=== PATIENT | female | born 1970 | race Hispanic/Latino ===

== ENCOUNTER 2016-11-23 08:36 | Emergency (ER) | payer OTHER ==
[2016-11-23 08:36] VITALS: BMI 30.7
[2016-11-23 09:19] VITALS: RESP 18; O2SAT 100
[2016-11-23] MEDS ORDERED: Sodium Chloride 0.9% 1,000 ML IV STA ×2 (09:38→13:21)
--- NOTE | 2016-11-23 09:39 | ED PDOC ---
Arrival/HPI - General Chief Complaint: Lower Extremity Problem/Injury Time Seen by Provider: 11/23/16 09:19 Historian: Patient - History of Present Illness Narrative History of Present Illness (Text): 11/23/16 10:06 46-year-old female with type 1 diabetes presents today with bilateral lower leg aching pain right greater than left. Patient complaining of burning sensation in the both legs. Patient also complaining of severe right knee pain. Patient denies numbness or weakness in the extremities. Patient also complaining of nausea. Patient states she is on an insulin pump 3 weeks ago. pt states she shut the pump off this morning since her sugar was good. She denies abdominal pain. No chest pain or shortness of breath. Denies fevers or chills. No urinary symptoms. Patient states she is just feeling achy all over. pt states she has been having right knee pain x 1 week. was seen by pmd and given meds without improvement. Past Medical History - Provider Review Nursing Documentation Reviewed: Yes - Travel History Have you recently traveled outside [place] w/in the past 3 mons?: No - Infectious Disease Hx of Infectious Diseases: None - Tetanus Immunization Tetanus Immunization: Unknown, >10 years Ago - Cardiac Hx Cardiac Disorders: Yes Hx Hypertension: Yes - Pulmonary Hx Respiratory Disorders: No - Neurological Hx Neurological Disorder: No - HEENT Hx HEENT Disorder: No - Renal Hx Renal Disorder: No - Endocrine/Metabolic Hx Endocrine Disorders: Yes Hx Diabetes Mellitus Type 1: Yes (dx 2000) - Hematological/Oncological Hx Blood Disorders: No - Integumentary Hx Dermatological Disorder: No - Musculoskeletal/Rheumatological Hx Musculoskeletal Disorders: Yes Hx Arthritis: Yes (right knee lower back) Hx Falls: No - Gastrointestinal Hx Gastrointestinal Disorders: No - Genitourinary/Gynecological Hx Genitourinary Disorders: No - Psychiatric Hx Psychophysiologic Disorder: Yes Hx Depression: Yes Hx Substance Use: No - Past Surgical History Past Surgical History: No Previous - Surgical History Hx Tubal Ligation: Yes - Anesthesia Hx Anesthesia: Yes Hx Anesthesia Reactions: Yes (Vomiting) Hx Malignant Hyperthermia: No - Suicidal Assessment Feels Threatened In Home Enviroment: No Family/Social History - Physician Review Nursing Documentation Reviewed: Yes Family/Social History: Unknown Family HX Smoking Status: Light Smoker < 10 Cigarettes Daily Hx Alcohol Use: Yes Hx Substance Use: No Hx Substance Use Treatment: No Allergies/Home Meds Allergies/Adverse Reactions: Allergies No Known Allergies Allergy (Verified 11/23/16 09:19) Home Medications: Home Meds Medication Instructions Recorded Confirmed Insulin Aspart, Recombinant 0 unit SC TID 10/30/14 08/08/16 [Novolog] Insulin Glargine, Recombina 15 unit SC ACB 08/08/16 08/08/16 [Lantus] Review of Systems - Review of Systems Constitutional: absent: Fatigue, Fevers Respiratory: absent: SOB, Cough Cardiovascular: absent: Chest Pain, Palpitations Gastrointestinal: Nausea. absent: Abdominal Pain, Constipation, Diarrhea, Vomiting Genitourinary Female: absent: Dysuria, Frequency, Hematuria Musculoskeletal: Arthralgias. absent: Back Pain, Neck Pain Skin: absent: Rash, Pruritis Neurological: absent: Headache, Dizziness Psychiatric: absent: Anxiety, Depression Physical Exam Vital Signs Reviewed: Yes Vital Signs Temp Pulse Resp BP Pulse Ox 11/23/16 13:02 89 18 121/63 100 11/23/16 11:19 97 H 18 123/65 100 11/23/16 10:50 98.0 F 104 H 18 125/62 100 11/23/16 09:17 98.4 F 90 18 141/68 100 Temperature: Afebrile Blood Pressure: Normal Pulse: Regular Respiratory Rate: Normal Appearance: Positive for: Well-Appearing, Non-Toxic, Comfortable Pain Distress: None Mental Status: Positive for: Alert and Oriented X 3 Finger Stick Blood Glucose: 273 - Systems Exam Head: Present: Atraumatic Mouth: Present: Moist Mucous Membranes Respiratory/Chest: Present: Clear to Auscultation Cardiovascular: Present: Regular Rate and Rhythm Abdomen: Present: Normal Bowel Sounds. No: Tenderness, Distention, Peritoneal Signs, Rebound, Guarding Back: Present: Normal Inspection. No: CVA Tenderness, Midline Tenderness Lower Extremity: Present: Normal Inspection, NORMAL PULSES, Normal ROM, Tenderness (Right leg; + ttp over the anterior aspect of the right knee; sensation and distal pulses intact; cap refill <2. full rom of knee with pain. no hip tenderness. ), Neurovascularly Intact, Capillary Refill < 2 s. No: CALF TENDERNESS, Swelling, Erythema, Deformity, Temperature Abnormalties Neurological: Present: GCS=15, Speech Normal Skin: Present: Warm, Dry, Normal Color. No: Rashes Psychiatric: Present: Alert, Oriented x 3 Medical Decision Making ED Course and Treatment: 11/23/16 10:09 46-year-old female with bilateral leg pain and nausea. Finger stick 273 CBC wnl CMP glucose 334 Amylase wnl Lipase wnl Venous duplex of the bilateral lower extremities: no dvt X-ray of the right knee; no fracture Toradol given for pain Zofran given for nausea tramadol added for right leg/knee pain. pt with glucose of 334; pt turned her insulin pump back on and gave herself 2 units of insulin via pump finger stick ; 321; pt then gave herself and additional unit of insulin. 2nd liter of fluid added. pt hungry; given half turkey sandwich and crackers pt feeling better 11/23/16 13:11 discussed all results with patient in depth; knee immobilizer and crutches given for ambulation; will d/c home to f/u with pmd and orthopedist. advised return if symptoms worsen ,persist or if new symptoms develop. impression; leg pain, knee pain, hyperglycemia motrin every 6 hours as needed for pain tramadol every 6 hours as needed for moderate to severe pain; may cause drowsiness follow up with the primary care physician within the next 2 days increase fluids follow up with the orthopedist within the next 2 days. return immediately if symptoms worsen, persist or if new symptoms develop. - Lab Interpretations Lab Results: 11/23/16 09:50 11/23/16 09:50 Lab Results 11/23/16 10:20: Urine Color Yellow, Urine Appearance Clear, Urine pH 6.0, Ur Specific [place] 1.010, Urine Protein Negative, Urine Glucose (UA) >=1000, Urine Ketones 15 H, Urine Blood Negative, Urine Nitrate Negative, Urine Bilirubin Negative, Urine Urobilinogen 0.2, Ur Leukocyte Esterase Negative 11/23/16 09:50: WBC 6.6, RBC 4.48, Hgb 12.6, Hct 37.4, MCV 83.5, MCH 28.1, MCHC 33.7, RDW 12.6, Plt Count 196, MPV 10.1, Gran % 74.0 H, Lymph % (Auto) 17.8 L, [place] % (Auto) 5.6, Eos % (Auto) 2.1, Baso % (Auto) 0.5, Gran # 4.91, Lymph # 1.2 , [place] # 0.4, Eos # 0.1, Baso # 0.03, Sodium 133, Potassium 4.3, Chloride 100, Carbon Dioxide 22, Anion Gap 15, BUN 7, Creatinine 0.5, Est GFR ( Amer) > 60, Est GFR (Non-Af Amer) > 60, Random Glucose 334 H* D, Calcium 9.0, Total Bilirubin 1.2, AST 18, ALT 30, Alkaline Phosphatase 67, Total Protein 6.8, Albumin 3.9, Globulin 2.9, Albumin/Globulin Ratio 1.3, Amylase 49, Lipase 33 - RAD Interpretation Radiology Orders: 11/23/16 09:38 DUPLEX LOWER EXTRM VEIN BILAT [US] Stat 11/23/16 10:05 KNEE W PATELLA RIGHT 3 VIEW [RAD] Stat - Medication Orders Current Medication Orders: Discontinued Medications Sodium Chloride (Sodium Chloride 0.9%) 1,000 mls @ 999 mls/hr IV .Q1H1M STA Stop: 11/23/16 10:38 Last Admin: 11/23/16 09:55 Dose: 999 MLS/HR eMAR Start Stop Document 11/23/16 09:55 SE (Rec: 11/23/16 09:55 [id number]) Intravenous Solution Start Date 11/23/16 Start Time 09:55 Sodium Chloride (Sodium Chloride 0.9%) 1,000 mls @ 999 mls/hr IV .Q1H1M STA Stop: 11/23/16 14:21 Last Admin: 11/23/16 13:28 Dose: 999 MLS/HR eMAR Start Stop Document 11/23/16 13:28 SE (Rec: 11/23/16 [facility]:[address] [id number] Intravenous Solution Start Date 11/23/16 Start Time 13:28 Ketorolac Tromethamine (Toradol) 30 mg IVP STAT STA Stop: 11/23/16 10:09 Last Admin: 11/23/16 10:56 Dose: 30 MG IVP Administration Document 11/23/16 10:56 SE (Rec: 11/23/16 10:56 SE [id number]) Charges for Administration # of IVP Administrations 1 Ondansetron HCl (Zofran Inj) 4 mg IVP STAT STA Stop: 11/23/16 09:40 Last Admin: 11/23/16 09:53 Dose: 4 MG IVP Administration Document 11/23/16 09:53 SE (Rec: 11/23/16 09:53 SE [id number]) Charges for Administration # of IVP Administrations 1 Tramadol HCl (Ultram) 50 mg PO STAT STA Stop: 11/23/16 12:27 Last Admin: 11/23/16 12:37 Dose: 50 MG Disposition/Present on Arrival - Present on Arrival Any Indicators Present on Arrival: Yes History of DVT/PE: No History of Uncontrolled Diabetes: Yes Urinary Catheter: No History of Decub. Ulcer: No History Surgical Site Infection Following: None - Disposition Have Diagnosis and Disposition been Completed?: Yes Diagnosis: Leg pain, Knee pain, Hyperglycemia Disposition: HOME/ ROUTINE Disposition Time: 14:32 Patient Plan: Discharge Patient Problems: Current Active Problems Problem Status Diagnosed Hyperglycemia Acute Knee pain Acute Leg pain Acute Condition: GOOD Discharge Instructions (ExitCare): Diabetic Hyperglycemia (ED), Arthralgia (ED) , Leg Pain (ED) Additional Instructions: Motrin every 6 hours as needed for pain tramadol every 6 hours as needed for moderate to severe pain; may cause drowsiness follow up with the primary care physician within the next 2 days increase fluids follow up with the orthopedist within the next 2 days. USE knee immobilizer and crutches return immediately if symptoms worsen, persist or if new symptoms develop. Prescriptions: Ibuprofen [Motrin] 600 mg PO Q6H PRN #20 tab PRN Reason: pain/fever reduction traMADol [Ultram] 50 mg PO Q6H PRN #15 tab PRN Reason: moderate to severe pain Referrals: Misha Rizvi JD, MD [Staff Provider] - Follow up with primary Joaquin Marie III, MD [Medical Doctor] - Follow up with primary Forms: WORK NOTE
[2016-11-23 09:59] LABS: ADD MANUAL DIFF? NO
[2016-11-23 10:02] LABS: BASO # 0.03 K/mm3 (0.0-2.0); BASO % 0.5 % (0.0-3.0); EOS # 0.1 (0.0-0.7); EOS % 2.1 % (1.5-5.0); GRAN # 4.91 (1.4-6.5); HEMATOCRIT 37.4 % (36.0-48.0); LYMPH # 1.2 (1.2-3.4); LYMPH % 17.8 % (22.0-35.0); MEAN CELL VOLUME 83.5 fL (80.0-105.0); MEAN CORPUSCULAR HEMOGLOBIN 28.1 pg (25.0-35.0); MEAN CORPUSCULAR HGB CONC 33.7 g/dl (31.0-37.0); MEAN PLATELET VOLUME 10.1 fl (7.0-11.0); MONO # 0.4 (0.1-0.6); MONO % 5.6 % (1.0-6.0); PLATELET COUNT 196 10^3/uL (120.0-450.0); RED CELL DISTRIBUTION WIDTH 12.6 % (11.5-14.5); WHITE BLOOD COUNT 6.6 10^3/ul (4.5-11.0)
[2016-11-23 10:12] LABS: ALB/GLOB RATIO 1.3 (1.1-1.8); ALKALINE PHOSPHATASE 67 U/L (38-133); ALT/SGPT 30 U/L (7-56); AMYLASE 49 U/L (35-125); AST/SGOT 18 U/L (15-39); BILIRUBIN,TOTAL 1.2 mg/dL (0.2-1.3); BLOOD UREA NITROGEN 7 mg/dL (7-21); CARBON DIOXIDE 22 mmol/L (21-33); CHLORIDE 100 mmol/L (98-107); GFR AFRICAN-AMERICAN > 60; LIPASE 33 U/L (23-300); POTASSIUM 4.3 mmol/L (3.6-5.0); SODIUM 133 mmol/L (132-148); TOTAL PROTEIN 6.8 g/dL (5.8-8.3)
[2016-11-23 10:23] LABS: GLUCOSE,RANDOM 334 mg/dL (70-110)
[2016-11-23 10:50] LABS: URINE BILIRUBIN NEGATIVE (NEGATIVE); URINE BLOOD NEGATIVE (NEGATIVE); URINE GLUCOSE (UA) >=1000 mg/dL (NEGATIVE); URINE KETONE 15 mg/dL (NEGATIVE); URINE LEUKOCYTE ESTERASE NEGATIVE Leu/uL (NEGATIVE); URINE PROTEIN NEGATIVE mg/dL (<30 mg/dL); URINE UROBILINOGEN 0.2 E.U./dL (<1 E.U./dL)
[2016-11-23 10:51] VITALS: TEMP 98
[2016-11-23 10:51] LABS: URINE APPEARANCE CLEAR (CLEAR); URINE COLOR YELLOW (YELLOW)
--- NOTE | 2016-11-23 10:57 | US ---
HISTORY: Leg pain and swelling. Evaluate for DVT PHYSICIAN(S): Rip Hinson MD. TECHNIQUE: Duplex sonography and color-flow Doppler with graded compression were used to evaluate the deep venous systems of both lower extremities. FINDINGS: The visualized deep venous systems of both lower extremities are sonographically normal and compressible. Normal wave forms and augmentation are seen. There is no sonographic evidence for deep venous thrombosis in the visualized segments of both lower extremities. IMPRESSION: No sonographic evidence for deep venous thrombosis in the visualized segments of both lower extremities.
--- NOTE | 2016-11-23 12:19 | RAD ---
PROCEDURE: Right Knee Radiographs. HISTORY: knee pain COMPARISON: None. FINDINGS: BONES: Normal. No fracture. JOINTS: Normal. No osteoarthritis. JOINT EFFUSION: None. OTHER FINDINGS: Patellar view is unremarkable IMPRESSION: Normal radiographs of the right knee.
[2016-11-23 13:03] VITALS: BP 121/63; PULSE 89
== END 2016-11-23 15:07 | disposition home or self-care (01) ==
LOC: ED 08:36
DX: M25.561 Pain in right knee (principal); M79.605 Pain in left leg; M79.604 Pain in right leg; E10.9 Type 1 diabetes mellitus without complications; Z79.4 Long term (current) use of insulin; I10 Essential (primary) hypertension
CPT/HCPCS: 29530; 73562; 80053; 81003; 82150; 83690; 85025; 93970; 96374; 96375; 99285; J1885; J2405; J7040

== ENCOUNTER 2017-02-15 17:10 | Emergency (ER) | payer OTHER ==
[2017-02-15 17:24] VITALS: BMI 29.0
[2017-02-15 17:29] VITALS: TEMP 98.3
[2017-02-15] MEDS ORDERED: Sodium Chloride 0.9% 1,000 ML IV STA (17:54)
--- NOTE | 2017-02-15 18:02 | ED PDOC ---
Arrival/HPI - General Chief Complaint: ENT Problem Time Seen by Provider: 02/15/17 17:43 Historian: Patient - History of Present Illness Narrative History of Present Illness (Text): 02/15/17 17:57 46-year-old female with a history of diabetes presents today with a one-week history of cough and nasal congestion and sore throat with a feeling of worsening weakness over the past few days. Patient states today at work she felt foggy and just not feeling right. Patient states her sugars have been running a little high lately. She denies chest pain or shortness of breath. Denies abdominal pain. She is complaining of dry cough and irritated throat. Also with nasal congestion. She is complaining of fullness in the face. Patient states she has been taking Augmentin for approximately one week without improvement in her symptoms. Time/Duration: Other (2 days) Symptom Onset: Gradual Quality: Other (no pain) Past Medical History - Provider Review Nursing Documentation Reviewed: Yes - Travel History Have you recently traveled outside [place] w/in the past 3 mons?: No - Infectious Disease Hx of Infectious Diseases: None - Tetanus Immunization Tetanus Immunization: Unknown, >10 years Ago - Cardiac Hx Cardiac Disorders: Yes Hx Hypertension: Yes - Pulmonary Hx Respiratory Disorders: No - Neurological Hx Neurological Disorder: No - HEENT Hx HEENT Disorder: No - Renal Hx Renal Disorder: No - Endocrine/Metabolic Hx Endocrine Disorders: Yes Hx Diabetes Mellitus Type 1: Yes (dx 2000) - Hematological/Oncological Hx Blood Disorders: No - Integumentary Hx Dermatological Disorder: No - Musculoskeletal/Rheumatological Hx Musculoskeletal Disorders: Yes Hx Arthritis: Yes (right knee lower back) Hx Falls: No - Gastrointestinal Hx Gastrointestinal Disorders: No - Genitourinary/Gynecological Hx Genitourinary Disorders: No - Psychiatric Hx Psychophysiologic Disorder: Yes Hx Depression: Yes Hx Substance Use: No - Past Surgical History Past Surgical History: No Previous - Surgical History Hx Tubal Ligation: Yes - Anesthesia Hx Anesthesia: Yes Hx Anesthesia Reactions: Yes (Vomiting) Hx Malignant Hyperthermia: No - Suicidal Assessment Feels Threatened In Home Enviroment: No Family/Social History - Physician Review Nursing Documentation Reviewed: Yes Family/Social History: Unknown Family HX Smoking Status: Current Some Days Smoker Hx Alcohol Use: Yes Frequency of alcohol use: Socially Hx Substance Use: No Hx Substance Use Treatment: No Allergies/Home Meds Allergies/Adverse Reactions: Allergies No Known Allergies Allergy (Verified 11/23/16 09:19) Home Medications: Home Meds Medication Instructions Recorded Confirmed Insulin Aspart, Recombinant 0 unit SC TID 10/30/14 02/15/17 [Novolog] Diclofenac Sodium [Voltaren] 1 tab PO BID PRN 02/15/17 02/15/17 Review of Systems - Review of Systems Constitutional: Fatigue. absent: Fevers ENT: Sore Throat, Sinus Congestion Respiratory: Cough Cardiovascular: absent: Chest Pain, Palpitations Gastrointestinal: absent: Abdominal Pain, Diarrhea, Nausea, Vomiting Musculoskeletal: absent: Arthralgias, Back Pain, Neck Pain Skin: absent: Rash, Pruritis Neurological: absent: Headache, Dizziness, Disequilibrium Psychiatric: absent: Anxiety, Depression, Suicidal Ideation Physical Exam Vital Signs Reviewed: Yes Vital Signs Temp Pulse Resp BP Pulse Ox 02/15/17 20:13 78 18 131/63 99 02/15/17 17:29 98.3 F 96 H 18 129/65 99 Temperature: Afebrile Blood Pressure: Normal Pulse: Regular Respiratory Rate: Normal Appearance: Positive for: Well-Appearing, Non-Toxic, Comfortable Pain Distress: None Mental Status: Positive for: Alert and Oriented X 3 Finger Stick Blood Glucose: 284 - Systems Exam Head: Present: Atraumatic Mouth: Present: Moist Mucous Membranes Neck: Present: Normal Range of Motion Respiratory/Chest: Present: Clear to Auscultation, Good Air Exchange. No: Respiratory Distress, Accessory Muscle Use, Wheezes, Retracting, Rhonchi, Tachypneic, Tender to Palpation Cardiovascular: Present: Regular Rate and Rhythm, Normal S1, S2. No: Murmurs Abdomen: No: Tenderness, Normal Bowel Sounds Back: Present: Normal Inspection Upper Extremity: Present: Normal ROM Neurological: Present: GCS=15, Speech Normal Skin: Present: Warm, Dry, Normal Color. No: Rashes Psychiatric: Present: Alert Medical Decision Making ED Course and Treatment: 02/15/17 18:05 46yr old female with hx of DM. presenting with weakness and cold symptoms on augmentin. pt refusing EKG. fingerstick; 284 cbc; wnl cmp; glucose; 241 trop; wnl cxr; wnl UA: trace ketones 1L NS iv bolus 02/15/17 20:37 pt feeling better; vitals stable. discussed all results with patient in depth; advised f/u with PMD within the next 2 days. will add rx for flonase and claritin. advised continue abx as prescribed and return if symptoms worsen, persist or if new symptoms develop. Patient verbalizes understanding of discharge instructions and need for immediate followup. all aspects of this case were discussed the attending of record. impression; cough, sore throat increase fluids motrin every 6 hours as needed for pain/fever reduction continue augmentin as prescribed by your primary care physician flonase; 2 sprays each nostril once daily claritin once daily. follow up with the ENT specialist follow up with the primary care physician within the next 2 days. return immediately if symptoms worsen,persist or if new symptoms develop. - Lab Interpretations Lab Results: 02/15/17 18:15 02/15/17 18:15 Lab Results 02/15/17 20:00: Urine Color Yellow, Urine Appearance Clear, Urine pH 5.5, Ur Specific [place] >= 1.030, Urine Protein Negative, Urine Glucose (UA) >=1000, Urine Ketones 15 H, Urine Blood Negative, Urine Nitrate Negative, Urine Bilirubin Negative, Urine Urobilinogen 0.2, Ur Leukocyte Esterase Negative 02/15/17 18:15: WBC 7.7, RBC 4.75, Hgb 13.6, Hct 40.3, MCV 84.8, MCH 28.6, MCHC 33.7, RDW 12.6, Plt Count 256, MPV 9.9, Gran % 65.7, Lymph % (Auto) 25.0, [place] % (Auto) 5.7, Eos % (Auto) 3.1, Baso % (Auto) 0.5, Gran # 5.04, Lymph # 1.9, [place] # 0.4, Eos # 0.2, Baso # 0.04 02/15/17 18:15: Sodium 135, Potassium 4.0, Chloride 98, Carbon Dioxide 26, Anion Gap 15, BUN 17, Creatinine 0.6, Est GFR ( Amer) > 60, Est GFR (Non- Af Amer) > 60, Random Glucose 241 H, Calcium 9.4, Total Bilirubin 0.7, AST 21, ALT 26, Alkaline Phosphatase 82, Lactate Dehydrogenase 365, Total Creatine Kinase 86, Troponin I < 0.01, Total Protein 7.8, Albumin 4.7, Globulin 3.1, Albumin/Globulin Ratio 1.5 - RAD Interpretation Radiology Orders: 02/15/17 17:54 CHEST TWO VIEWS (PA/LAT) [RAD] Stat - Medication Orders Current Medication Orders: Discontinued Medications Sodium Chloride (Sodium Chloride 0.9%) 1,000 mls @ 999 mls/hr IV .Q1H1M STA Stop: 02/15/17 18:54 Last Admin: 02/15/17 17:15 Dose: 999 mls/hr Disposition/Present on Arrival - Present on Arrival Any Indicators Present on Arrival: Yes History of DVT/PE: No History of Uncontrolled Diabetes: Yes Urinary Catheter: No History of Decub. Ulcer: No History Surgical Site Infection Following: None - Disposition Have Diagnosis and Disposition been Completed?: Yes Diagnosis: Cough, Sore throat Disposition: HOME/ ROUTINE Disposition Time: 20:41 Patient Plan: Discharge Patient Problems: Current Active Problems Problem Status Onset Cough Acute Sore throat Acute Condition: GOOD Additional Instructions: increase fluids motrin every 6 hours as needed for pain/fever reduction continue augmentin as prescribed by your primary care physician flonase; 2 sprays each nostril once daily claritin once daily. follow up with the ENT specialist follow up with the primary care physician within the next 2 days. return immediately if symptoms worsen,persist or if new symptoms develop. Prescriptions: Fluticasone Nasal [Flonase] 2 spr NS DAILY #1 spr Loratadine [Claritin] 10 mg PO DAILY #30 tab Referrals: Misha Rizvi JD, MD [Primary Care Provider] - Follow up with primary Joaquin Nugent DO [Doctor Osteopathy] - Follow up with primary Forms: WORK NOTE
[2017-02-15 18:21] LABS: ADD MANUAL DIFF? NO
[2017-02-15 18:28] LABS: BASO # 0.04 K/mm3 (0.0-2.0); BASO % 0.5 % (0.0-3.0); EOS # 0.2 (0.0-0.7); EOS % 3.1 % (1.5-5.0); GRAN # 5.04 (1.4-6.5); GRAN % 65.7 % (50.0-68.0); HEMATOCRIT 40.3 % (36.0-48.0); LYMPH # 1.9 (1.2-3.4); MEAN CELL VOLUME 84.8 fL (80.0-105.0); MEAN CORPUSCULAR HEMOGLOBIN 28.6 pg (25.0-35.0); MEAN CORPUSCULAR HGB CONC 33.7 g/dl (31.0-37.0); MEAN PLATELET VOLUME 9.9 fl (7.0-11.0); MONO # 0.4 (0.1-0.6); MONO % 5.7 % (1.0-6.0); PLATELET COUNT 256 10^3/uL (120.0-450.0); RED CELL DISTRIBUTION WIDTH 12.6 % (11.5-14.5); WHITE BLOOD COUNT 7.7 10^3/ul (4.5-11.0)
[2017-02-15 18:37] LABS: ALB/GLOB RATIO 1.5 (1.1-1.8); ALKALINE PHOSPHATASE 82 U/L (38-133); ALT/SGPT 26 U/L (7-56); AST/SGOT 21 U/L (15-39); BILIRUBIN,TOTAL 0.7 mg/dL (0.2-1.3); BLOOD UREA NITROGEN 17 mg/dL (7-21); CALCIUM 9.4 mg/dL (8.4-10.5); CARBON DIOXIDE 26 mmol/L (21-33); CHLORIDE 98 mmol/L (98-107); GFR AFRICAN-AMERICAN > 60; GLUCOSE,RANDOM 241 mg/dL (70-110); SODIUM 135 mmol/L (132-148); TOTAL PROTEIN 7.8 g/dL (5.8-8.3)
[2017-02-15 18:50] LABS: TROPONIN I < 0.01 ng/mL
[2017-02-15 20:14] VITALS: PULSE 78
[2017-02-15 20:14] LABS: PH,URINE 5.5 (4.7-8.0); URINE BILIRUBIN NEGATIVE (NEGATIVE); URINE BLOOD NEGATIVE (NEGATIVE); URINE GLUCOSE (UA) >=1000 mg/dL (NEGATIVE); URINE KETONE 15 mg/dL (NEGATIVE); URINE LEUKOCYTE ESTERASE NEGATIVE Leu/uL (NEGATIVE); URINE PROTEIN NEGATIVE mg/dL (<30 mg/dL); URINE UROBILINOGEN 0.2 E.U./dL (<1 E.U./dL)
[2017-02-15 20:35] LABS: URINE APPEARANCE CLEAR (CLEAR); URINE COLOR YELLOW (YELLOW)
[2017-02-15 21:10] VITALS: BP 130/87; RESP 16; O2SAT 100
--- NOTE | 2017-02-16 10:04 | RAD ---
HISTORY: cough COMPARISON: 08/08/2016 TECHNIQUE: Chest PA and lateral FINDINGS: LUNGS: No active pulmonary disease. PLEURA: No significant pleural effusion identified. No pneumothorax apparent. CARDIOVASCULAR: Normal. OSSEOUS STRUCTURES: No significant abnormalities. VISUALIZED UPPER ABDOMEN: Normal. OTHER FINDINGS: None. IMPRESSION: No active disease.
== END 2017-02-15 21:07 | disposition home or self-care (01) ==
LOC: ED 17:10
DX: R05 Cough (principal); J02.9 Acute pharyngitis, unspecified
CPT/HCPCS: 71020; 80053; 81003; 82550; 83615; 84484; 85025; 99284; J7040

== ENCOUNTER 2017-04-08 19:49 | Observation (INO) | payer OTHER ==
[2017-04-08 19:49] VITALS: BMI 29.0
[2017-04-08] MEDS: Sodium Chloride 0.9% 1,000 ML IV SCH (20:37)
[2017-04-08 20:39] LABS: BASO # 0.04 K/mm3 (0.0-2.0); BASO % 0.9 % (0.0-3.0); EOS # 0.3 (0.0-0.7); EOS % 7.4 % (1.5-5.0); GRAN # 2.43 (1.4-6.5); GRAN % 54.3 % (50.0-68.0); HEMATOCRIT 36.2 % (36.0-48.0); LYMPH # 1.3 (1.2-3.4); LYMPH % 29.1 % (22.0-35.0); MEAN CELL VOLUME 84.2 fl (80.0-105.0); MEAN CORPUSCULAR HEMOGLOBIN 28.1 pg (25.0-35.0); MEAN CORPUSCULAR HGB CONC 33.4 g/dl (31.0-37.0); MEAN PLATELET VOLUME 9.8 fl (7.0-11.0); MONO # 0.4 (0.1-0.6); MONO % 8.3 % (1.0-6.0); RED CELL DISTRIBUTION WIDTH 12.4 % (11.5-14.5); WHITE BLOOD COUNT 4.5 10^3/ul (4.5-11.0)
[2017-04-08 20:50] LABS: ALB/GLOB RATIO 1.6 (1.1-1.8); ALKALINE PHOSPHATASE 116 U/L (38-133); ALT/SGPT 19 U/L (7-56); AST/SGOT 16 U/L (15-39); BILIRUBIN,TOTAL 0.4 mg/dL (0.2-1.3); BLOOD UREA NITROGEN 18 mg/dL (7-21); CALCIUM 8.6 mg/dL (8.4-10.5); CARBON DIOXIDE 15 mmol/L (21-33); CHLORIDE 104 mmol/L (98-107); GFR AFRICAN-AMERICAN > 60; POTASSIUM 4.2 mmol/L (3.6-5.0); SODIUM 137 mmol/L (132-148); TOTAL PROTEIN 5.7 g/dL (5.8-8.3)
[2017-04-08 20:54] LABS: GLUCOSE,RANDOM 547 mg/dL (70-110)
--- NOTE | 2017-04-08 21:06 | ED PDOC ---
Arrival/HPI - General Chief Complaint: High Blood Sugar Time Seen by Provider: 04/08/17 19:51 Historian: Patient - History of Present Illness Narrative History of Present Illness (Text): 04/08/17 20:20 Emma Morgan is a 47 year old female, whose past medical history includes diabetes, who presents to the Emergency department complaining of hyperglycemia. Patient states her insulin pump has been malfunctioning and symptoms feel similar to previous episodes of DKA. Patient denies any fever, chills, chest pain, shortness of breath, diarrhea, urinary symptoms, back pain, neck pain, headache, dizziness, or any other complaints. PMD: Dr. Rizvi Symptom Onset: Gradual Symptom Course: Unchanged Activities at Onset: Light Context: Home Past Medical History - Provider Review Nursing Documentation Reviewed: Yes - Infectious Disease Hx of Infectious Diseases: None - Tetanus Immunization Tetanus Immunization: Unknown, >10 years Ago - Reproductive Menopause: No - Cardiac Hx Cardiac Disorders: Yes Hx Hypertension: Yes - Pulmonary Hx Respiratory Disorders: No - Neurological Hx Neurological Disorder: No - HEENT Hx HEENT Disorder: No - Renal Hx Renal Disorder: No - Endocrine/Metabolic Hx Endocrine Disorders: Yes Hx Diabetes Mellitus Type 1: Yes (dx 2000) - Hematological/Oncological Hx Blood Disorders: No - Integumentary Hx Dermatological Disorder: No - Musculoskeletal/Rheumatological Hx Musculoskeletal Disorders: Yes Hx Arthritis: Yes (right knee lower back) Hx Falls: No - Gastrointestinal Hx Gastrointestinal Disorders: No - Genitourinary/Gynecological Hx Genitourinary Disorders: No - Psychiatric Hx Psychophysiologic Disorder: Yes Hx Depression: Yes Hx Substance Use: No - Past Surgical History Past Surgical History: No Previous - Surgical History Hx Tubal Ligation: Yes - Anesthesia Hx Anesthesia: Yes Hx Anesthesia Reactions: Yes (Vomiting) Hx Malignant Hyperthermia: No - Suicidal Assessment Feels Threatened In Home Enviroment: No Family/Social History - Physician Review Nursing Documentation Reviewed: Yes Family/Social History: Unknown Family HX Smoking Status: Light Smoker < 10 Cigarettes Daily Hx Alcohol Use: Yes Frequency of alcohol use: Socially Hx Substance Use: No Hx Substance Use Treatment: No Allergies/Home Meds Allergies/Adverse Reactions: Allergies No Known Allergies Allergy (Verified 11/23/16 09:19) Home Medications: Home Meds Medication Instructions Recorded Confirmed Insulin Aspart, Recombinant 1 unit SC Q1H 10/30/14 04/08/17 [Novolog] Lisinopril [Zestril] 10 mg PO DAILY 04/08/17 04/08/17 Review of Systems - Physician Review All systems were reviewed & negative as marked: Yes - Review of Systems Constitutional: Normal. absent: Fevers Eyes: Normal ENT: Normal Respiratory: Normal. absent: SOB, Cough Cardiovascular: Normal. absent: Chest Pain Gastrointestinal: absent: Abdominal Pain, Diarrhea Genitourinary Female: Normal Musculoskeletal: Normal Skin: Normal. absent: Rash Neurological: Normal. absent: Headache, Dizziness Endocrine: Other (+hypergylcemia, +insulin pump malfunction) Hemo/Lymphatic: Normal Psychiatric: Normal Physical Exam Vital Signs Reviewed: Yes Vital Signs Temp Pulse Resp BP Pulse Ox 04/09/17 00:08 89 18 129/71 99 04/08/17 20:06 99 F 105 H 18 129/60 99 Temperature: Afebrile Blood Pressure: Normal Pulse: Regular Respiratory Rate: Normal Appearance: Positive for: Well-Appearing, Non-Toxic, Comfortable Pain Distress: None Mental Status: Positive for: Alert and Oriented X 3 Finger Stick Blood Glucose: 443 - Systems Exam Head: Present: Atraumatic, Normocephalic Pupils: Present: PERRL Extroacular Muscles: Present: EOMI Conjunctiva: Present: Normal Mouth: Present: Moist Mucous Membranes Neck: Present: Normal Range of Motion Respiratory/Chest: Present: Clear to Auscultation, Good Air Exchange. No: Respiratory Distress, Accessory Muscle Use Cardiovascular: Present: Regular Rate and Rhythm, Normal S1, S2. No: Murmurs Abdomen: Present: Normal Bowel Sounds. No: Tenderness, Distention, Peritoneal Signs Back: Present: Normal Inspection Upper Extremity: Present: Normal Inspection. No: Cyanosis, Edema Lower Extremity: Present: Normal Inspection. No: Edema Neurological: Present: GCS=15, CN II-XII Intact, Speech Normal Skin: Present: Warm, Dry, Normal Color. No: Rashes Psychiatric: Present: Alert, Oriented x 3, Normal Insight, Normal Concentration Medical Decision Making ED Course and Treatment: 04/08/17 20:20 Impression: 47 year old female complaining of hyperglycemia. Plan: -- Labs -- UA -- Chest X-ray -- IV fluids -- Zofran -- Reassess and disposition Prior Visits: Notes and results from previous visits were reviewed. On 02/15/17, pt was seen in the Emergency department for cough, sore throat, and nasal congestion. Pt was d/c home. Progress Notes: 04/08/17 21:30 Reviewed radiology, Chest X-ray shows no acute processes. 04/08/17 21:[address] Murphy, order planner, who is aware and agrees with plan. president educational institution notified. 04/08/17 22:17 Reviewed EKG, NSR at [address] bpm[address] Non-specific ST/T wave changes. 04/09/17 23:[address] Murphy, pt can go to Telemetry observation for hyperglycemia. On re-evaluation, pt is no acute distress. Discussed results and hospital observation plan with pt, who is aware and verbalizes understanding. - Lab Interpretations Lab Results: 04/08/17 20:25 04/09/17 00:07 Lab Results 04/09/17 00:07: Sodium 139, Potassium 3.7, Chloride 108 H, Carbon Dioxide 20 L, Anion Gap 15, BUN 15, Creatinine 0.5, Est GFR ( Amer) > 60, Est GFR (Non- Af Amer) > 60, Random Glucose 147 H, Calcium 8.2 L, Total Bilirubin 0.3, AST 16 , ALT 27, Alkaline Phosphatase 89, Total Protein 5.9, Albumin 3.4, Globulin 2.5 , Albumin/Globulin Ratio 1.4 04/08/17 22:47: Urine Color Yellow, Urine Appearance Clear, Urine pH 6.0, Ur Specific [place] 1.015, Urine Protein Negative, Urine Glucose (UA) >=1000, Urine Ketones >=80, Urine Blood Negative, Urine Nitrate Negative, Urine Bilirubin Negative, Urine Urobilinogen 0.2, Ur Leukocyte Esterase Negative 04/08/17 22:30: pCO2 31 L, pO2 91.0, HCO3 17.5 L, ABG pH 7.36, ABG Total CO2 18.5 L, ABG O2 Saturation 97.9, ABG O2 Content 15.5, ABG Base Excess -6.9 L, ABG Hemoglobin 11.4 L, ABG Carboxyhemoglobin 1.2, POC ABG HHb (Measured) 2.1, ABG Methemoglobin 0.7, ABG O2 Capacity 15.8 L, Hgb O2 Saturation 96.1, FiO2 21.0 04/08/17 20:25: Sodium 137, Potassium 4.2, Chloride 104, Carbon Dioxide 15 L, Anion Gap 22 H, BUN 18, Creatinine 0.7, Est GFR ( Amer) > 60, Est GFR ( Non-Af Amer) > 60, Random Glucose 547 H* D, Calcium 8.6, Total Bilirubin 0.4, AST 16, ALT 19, Alkaline Phosphatase 116, Total Protein 5.7 L, Albumin 3.5, Globulin 2.2, Albumin/Globulin Ratio 1.6 04/08/17 20:25: WBC 4.5 D, RBC 4.30, Hgb 12.1, Hct 36.2, MCV 84.2, MCH 28.1, MCHC 33.4, RDW 12.4, Plt Count 230, MPV 9.8, Gran % 54.3, Lymph % (Auto) 29.1, [place] % (Auto) 8.3 H, Eos % (Auto) 7.4 H, Baso % (Auto) 0.9, Gran # 2.43, Lymph # 1.3, [place] # 0.4, Eos # 0.3, Baso # 0.04 I have reviewed the lab results: Yes - RAD Interpretation Radiology Orders: 04/08/17 20:21 CHEST TWO VIEWS (PA/LAT) [RAD] Stat Peer Specialist: ED Physician - EKG Interpretation Interpreted by ED Physician: Yes Type: 12 lead EKG - Medication Orders Current Medication Orders: Acetaminophen (Tylenol 325mg Tab) 650 mg PO Q4H PRN PRN Reason: Pain, Mild (1-3) Last Admin: 04/09/17 14:50 Dose: 650 mg Re-Assess: [facility] Pain/Vitals Document 04/09/17 15:50 (Rec: 04/09/17 16:59 [id number]) Pain Reassessment Is This A Pain ReAssessment? Yes Sleep Is patient sleeping during reassessment? No Presence of Pain Presence of Pain No Ampicillin (Ampicillin) 500 mg PO TID MEENA PRN Reason: Protocol Last Admin: 04/09/17 18:53 Dose: 500 mg Sodium Chloride (Sodium Chloride 0.9%) 1,000 mls @ 125 mls/hr IV .Q8H [facility] Last Admin: 04/10/17 00:42 Dose: 125 mls/hr Insulin Detemir (Levemir) 30 unit SC [facility] Last Admin: 04/09/17 22:36 Dose: 30 unit Insulin Human Lispro (Humalog Low) 0 units SC [facility] PRN Reason: Protocol Last Admin: 04/09/17 22:36 Dose: Not Given Non-Admin Reason: Blood Sugar Parameter Insulin Human Lispro (Humalog) 12 units SC AC [facility] Last Admin: 04/09/17 16:41 Dose: 12 units Lisinopril (Zestril) 10 mg PO DAILY [facility] Last Admin: 04/09/17 10:02 Dose: 10 mg Metoclopramide HCl (Reglan) 5 mg PO 0600,1130,1630,2200 PRN PRN Reason: Nausea/Vomiting Last Admin: 04/09/17 10:03 Dose: 5 mg Discontinued Medications Sodium Chloride (Sodium Chloride 0.9%) 1,000 mls @ 80 mls/hr IV .[id number] [facility] Last Admin: 04/09/17 12:30 Dose: Insulin Human Regular 100 (units/ Sodium Chloride) 100 mls @ 6 mls/hr IV .[id number] PRN; Protocol; 6 UNITS/HR PRN Reason: TITRATE PER MD ORDER Last Admin: 04/09/17 00:14 Dose: 1.5 mls/hr Comments: Blood Sugar = 157. Insulin Human Regular (Humulin R Low) 0 units SC [facility] PRN Reason: Protocol Last Admin: 04/09/17 08:25 Dose: 5 units Insulin Human Regular (Humulin R High) 0 units SC [facility] PRN Reason: Protocol Last Admin: 04/09/17 11:54 Dose: 7 units Ondansetron HCl (Zofran Inj) 4 mg IVP STAT STA Stop: 04/08/17 20:23 Last Admin: 04/08/17 20:50 Dose: 4 mg Ondansetron HCl (Zofran Inj) 4 mg IVP ONCE ONE Stop: 04/09/17 08:17 Last Admin: 04/09/17 08:29 Dose: 4 mg - Scribe Statement The provider has reviewed the documentation as recorded by the Dinahibcarri Llanos All medical record entries made by the Dinahibcarri were at my direction and personally dictated by me. I have reviewed the chart and agree that the record accurately reflects my personal performance of the history, physical exam, medical decision making, and the department course for this patient. I have also personally directed, reviewed, and agree with the discharge instructions and disposition. Disposition/Present on Arrival - Present on Arrival Any Indicators Present on Arrival: No History of DVT/PE: No History of Uncontrolled Diabetes: Yes Urinary Catheter: No History of Decub. Ulcer: No History Surgical Site Infection Following: None - Disposition Have Diagnosis and Disposition been Completed?: Yes Diagnosis: Diabetic ketoacidosis associated with type 1 diabetes mellitus, Hyperglycemia Disposition: HOSPITALIZED Disposition Time: 23:00 Patient Problems: Current Active Problems Problem Status Onset Diabetic ketoacidosis associated with type 1 diabetes mellitus Acute Hypertension Acute Condition: FAIR
[2017-04-08] MEDS: Insulin Regular 100 UNITS in Sodium Chloride 0.9% 99 ML IV PRN (21:55)
[2017-04-08 22:46] LABS: ARTERIAL BLOOD GAS HCO3 17.5 mmol/L (21-28); ARTERIAL BLOOD GAS O2 CAPACITY 15.8 mL/dl (16-24); ARTERIAL BLOOD GAS O2 CONTENT 15.5 ML/dl (15-23); ARTERIAL BLOOD GAS PH 7.36 (7.35-7.45); ARTERIAL BLOOD HGB O2 SAT 96.1 % (95.0-98.0); CARBOXYHEMOGLOBIN 1.2 % (0.5-1.5); HHB 2.1 % (0-5); METHEMOGLOBIN 0.7 % (0.0-3.0)
[2017-04-08 22:51] LABS: URINE BILIRUBIN NEGATIVE (NEGATIVE); URINE BLOOD NEGATIVE (NEGATIVE); URINE GLUCOSE (UA) >=1000 mg/dL (NEGATIVE); URINE KETONE >=80 mg/dL (NEGATIVE); URINE LEUKOCYTE ESTERASE NEGATIVE Leu/uL (NEGATIVE); URINE PROTEIN NEGATIVE mg/dL (<30 mg/dL); URINE UROBILINOGEN 0.2 E.U./dL (<1 E.U./dL)
[2017-04-08 22:52] LABS: URINE APPEARANCE CLEAR (CLEAR); URINE COLOR YELLOW (YELLOW)
[2017-04-09] MEDS: Insulin Regular 100 UNITS in Sodium Chloride 0.9% 99 ML IV PRN (00:14)
[2017-04-09 00:38] LABS: ALB/GLOB RATIO 1.4 (1.1-1.8); ALKALINE PHOSPHATASE 89 U/L (38-133); ALT/SGPT 27 U/L (7-56); AST/SGOT 16 U/L (15-39); BILIRUBIN,TOTAL 0.3 mg/dL (0.2-1.3); BLOOD UREA NITROGEN 15 mg/dL (7-21); CALCIUM 8.2 mg/dL (8.4-10.5); CARBON DIOXIDE 20 mmol/L (21-33); GFR AFRICAN-AMERICAN > 60; GLUCOSE,RANDOM 147 mg/dL (70-110); POTASSIUM 3.7 mmol/L (3.6-5.0); SODIUM 139 mmol/L (132-148); TOTAL PROTEIN 5.9 g/dL (5.8-8.3)
[2017-04-09 00:47] LABS: CHLORIDE 108 mmol/L (98-107)
[2017-04-09] MEDS ORDERED: Insulin Reg-LOW-Coverage SC SCH (07:30)
[2017-04-09] MEDS: Sodium Chloride 0.9% 1,000 ML IV SCH ×3 (09:43→16:58)
--- NOTE | 2017-04-09 09:52 | CP.PCM.HP ---
History of Present Illness - History of Present Illness History of Present Illness: 47 yo female history of Type I DM presents to ED with fatigue, n/v for 1 - 2 days, recent dental abscess on oral amox, pt reports insulin pump also malfunctioning past 1 - 2 days. Started on isulin drip in ED, IV fliuids Present on Admission - Present on Admission Any Indicators Present on Admission: No Review of Systems - Gastrointestinal Gastrointestinal: Nausea, Vomiting - Genitourinary Genitourinary: Urinary Frequency - Endocrine Endocrine: Polydipsia Past Patient History - Infectious Disease Hx of Infectious Diseases: None - Tetanus Immunizations Tetanus Immunization: Unknown, >10 years Ago - Past Social History Smoking Status: Light Smoker < 10 Cigarettes Daily - CARDIAC Hx Cardiac Disorders: Yes Hx Hypertension: Yes - PULMONARY Hx Respiratory Disorders: No - NEUROLOGICAL Hx Neurological Disorder: No - HEENT Hx HEENT Problems: No - RENAL Hx Chronic Kidney Disease: No - ENDOCRINE/METABOLIC Hx Endocrine Disorders: Yes Hx Diabetes Mellitus Type 1: Yes (dx 1999) - HEMATOLOGICAL/ONCOLOGICAL Hx Blood Disorders: No - INTEGUMENTARY Hx Dermatological Problems: No - MUSCULOSKELETAL/RHEUMATOLOGICAL Hx Musculoskeletal Disorders: Yes Hx Arthritis: Yes (right knee lower back) Hx Falls: No - GASTROINTESTINAL Hx Gastrointestinal Disorders: No - GENITOURINARY/GYNECOLOGICAL Hx Genitourinary Disorders: No - PSYCHIATRIC Hx Psychophysiologic Disorder: Yes Hx Depression: Yes Hx Substance Use: No - SURGICAL HISTORY Hx Tubal Ligation: Yes - ANESTHESIA Hx Anesthesia: Yes Hx Anesthesia Reactions: Yes (Vomiting) Hx Malignant Hyperthermia: No Meds Allergies/Adverse Reactions: Allergies Allergy/AdvReac Type Severity Reaction Status Date / Time No Known Allergies Allergy Verified 11/23/16 09:19 Physical Exam - Constitutional Appears: No Acute Distress - Head Exam Head Exam: ATRAUMATIC, NORMOCEPHALIC - Eye Exam Eye Exam: EOMI, PERRL - ENT Exam ENT Exam: Normal Exam - Neck Exam Neck exam: Positive for: Normal Inspection - Respiratory Exam Respiratory Exam: Clear to Auscultation Bilateral, NORMAL BREATHING PATTERN - Cardiovascular Exam Cardiovascular Exam: REGULAR RHYTHM - GI/Abdominal Exam GI & Abdominal Exam: Normal Bowel Sounds, Soft - Extremities Exam Extremities exam: Positive for: normal inspection - Neurological Exam Neurological exam: Alert - Skin Skin Exam: Dry, Warm Results - Vital Signs Recent Vital Signs: Last Vital Signs Temp 99 F 04/09/17 06:00 Pulse 62 04/09/17 06:00 Resp 20 04/09/17 06:00 BP 120/65 04/09/17 06:00 Pulse Ox 97 04/09/17 06:00 - Labs Result Diagrams: 04/08/17 20:25 04/09/17 00:07 Labs: Laboratory Results - last 24 hr 04/09/17 04/09/17 02:33 08:12 POC Glucose (mg/dL) 124 H 440 H* Assessment & Plan (1) Diabetic ketoacidosis associated with type 1 diabetes mellitus Status: Acute (2) Hypertension Status: Acute - Assessment and Plan (Free Text) Plan: High-dose reg insukin coverage, IV fluids, endocrine consult , Cam
--- NOTE | 2017-04-09 10:36 | RAD ---
HISTORY: r/o infiltrate COMPARISON: 02/15/2017 TECHNIQUE: Chest PA and lateral FINDINGS: LUNGS: No active pulmonary disease. PLEURA: No significant pleural effusion identified. No pneumothorax apparent. CARDIOVASCULAR: Normal. OSSEOUS STRUCTURES: No significant abnormalities. VISUALIZED UPPER ABDOMEN: Normal. OTHER FINDINGS: None. IMPRESSION: No active disease.
--- NOTE | 2017-04-09 10:55 | CARD ---
APPROVED REPORT EKG Measurement Heart [id number] MA [id number] [id number] <Conclusion> Normal sinus rhythm Possible Left atrial enlargement Abnormal ECG
--- NOTE | 2017-04-09 11:16 | CP.PCM.PN ---
Subjective - Date & Time of Evaluation Date of Evaluation: 04/09/17 Time of Evaluation: 09:25 - Subjective Subjective: Pt was admitted earlier today for Hyperglycemia. Patient had c/o nausea earlier,was given 4 mg of Zofran iv at 8:17 AM,no seen for follow up. She states she feels better now,however her accucheck is reported to be 440. She was on Insulin drip at 6 units per hr while in the ER,it was stopped at 12: 14 AM after her accucheck was noted to be 157. At 8:30 AM she was given 5 units Humalog sc. She is also on iv fluids(NS) at 80 ccs an hr. VS: stable PMH:DM Type1 Objective - Vital Signs/Intake and Output Vital Signs (last 24 hours): Temp Pulse Resp BP Pulse Ox 99 F 62 20 120/65 97 04/09/17 06:00 04/09/17 06:00 04/09/17 06:00 04/09/17 06:00 04/09/17 06:00 Intake and Output: 04/09/17 04/09/17 06:59 18:59 Intake Total 640 Output Total 1 Balance 639 - Medications Medications: Current Medications Acetaminophen (Tylenol 325mg Tab) 650 mg PO Q4H PRN PRN Reason: Pain, Mild (1-3) Last Admin: 04/09/17 07:01 Dose: 650 mg Sodium Chloride (Sodium Chloride 0.9%) 1,000 mls @ 80 mls/hr IV .[id number] [facility] Last Admin: 04/08/17 20:37 Dose: 80 mls/hr Insulin Human Regular (Humulin R Low) 0 units SC [facility] PRN Reason: Protocol Last Admin: 04/09/17 08:25 Dose: 5 units - Constitutional Appears: No Acute Distress - Head Exam Head Exam: ATRAUMATIC, NORMAL INSPECTION, NORMOCEPHALIC - Eye Exam Eye Exam: Normal appearance, PERRL - ENT Exam ENT Exam: Mucous Membranes Moist - Neck Exam Neck Exam: Normal Inspection - Respiratory Exam Respiratory Exam: Clear to Ausculation Bilateral - Cardiovascular Exam Cardiovascular Exam: REGULAR RHYTHM - GI/Abdominal Exam GI & Abdominal Exam: Soft, Normal Bowel Sounds. absent: Tenderness - Extremities Exam Extremities Exam: Normal Inspection. absent: Calf Tenderness, Pedal Edema - Neurological Exam Neurological Exam: Alert, Awake, Oriented x3 - Psychiatric Exam Psychiatric exam: Normal Affect - Skin Skin Exam: Dry, Normal Color, Warm Assessment and Plan - Assessment and Plan (Free Text) Assessment: Nausea Hyperglycemia DM type 1,uncontrolled Plan: Dr Rizvi came in to see pt,orders for increased iv fluids and high dose insulin coverage ordered by him.
[2017-04-09] MEDS ORDERED: Insulin Reg-HIGH-Coverage SC SCH (11:30)
[2017-04-09] MEDS: Insulin Lispro (humaLOG) LOW Coverage SC SCH ×2 (16:31→22:36)
[2017-04-09] MEDS: Insulin Lispro 1 UNITS/0.01 ML SC SCH (16:41)
[2017-04-09] MEDS ORDERED: Insulin Detemir 100 units/ml Vial (Levemir) SC SCH (22:00)
[2017-04-10] MEDS: Sodium Chloride 0.9% 1,000 ML IV SCH ×2 (00:42→09:00)
[2017-04-10 00:50] VITALS: RESP 18
--- NOTE | 2017-04-10 04:13 | CON ---
ENDOCRINOLOGY CONSULT LOCATION: Room 266. HISTORY OF PRESENT ILLNESS: This is a 47-year-old female with recent hyperglycemic accelerations with an apparent malfunction of her insulin pump and has now been admitted for further diabetic management because of supervening diabetic ketoacidosis and dehydration. PAST MEDICAL HISTORY: As mentioned above, history of type 1 insulin-dependent diabetes diagnosed in 1999 and since then has been using an insulin pump over the last few years till the present time. History of hypertension and dyslipidemia. FAMILY HISTORY: Positive for diabetes and hypertension. SOCIAL HISTORY: Admits to smoking half a pack a day for some years now. No other known substance use. She has a very supportive family otherwise. REVIEW OF SYSTEMS: As mentioned above. Admits to generalized body weakness with episodic bouts of dizziness and lightheadedness, worse in the last few days prior to admission. Also, admits to easy fatigability and tiredness with suboptimal energy level. No chest pains, palpitations or PND. Her oral intake has been variable with nausea, dyspepsia and supervening vomiting episodes as noted. Also, admits to marked polyuria, nocturia and polydipsia over the last 2 to 3 days prior to admission. PHYSICAL EXAMINATION: GENERAL: Average built female in no apparent distress. VITAL SIGNS: Blood pressure of 140/80, pulse of 70 beats per minute and regular, temperature 98, respirations 20, height is 5 feet 6 inches and weight is 181 pounds. HEENT: Head is normocephalic. Eyes are anicteric with pink conjunctivae. Funduscopy not possible at this time. Ears, nose, and throat are otherwise normal. NECK: Supple. Thyroid gland is normal sized. No carotid bruits or any cervical adenopathy. CARDIOPULMONARY: Adynamic precordium. S1 and S2 is rapid and regular. LUNGS: Clear to auscultation. ABDOMEN: Flat and soft with active bowel sounds. EXTREMITIES: No peripheral pedal edema. Pulses are +2 bilaterally. LABORATORY DATA: Initial chemistry showed a BUN of 18, sodium 137, potassium 4.2, chloride 104, CO2 of 15, anion gap of 22, glucose was 547 and creatinine 0.7. The subsequent glucose levels have ranged from 297 to 344 and 440 mg/dL. ASSESSMENT: This is a 47-year-old female with uncontrolled and decompensated type 1 insulin-dependent diabetes, presenting here with an apparent malfunction of the insulin pump and supervening marked hyperglycemic accelerations with diabetic ketoacidosis and dehydration as noted. PLAN: Plan of management as discussed with the patient and staff. We will start her right away on a more physiologic basal and bolus insulin dose combination with Levemir to be given at 30 units subQ at bedtime daily to start tonight. We will also add Humalog given as 12 units subQ t.i.d. before meals to start at dinner time today as ordered. We will modify the coverage scale using Humalog at a low dose correction scale to tamica hypoglycemia and detailed orders have been given. We will continue the vigorous IV hydration with normal saline as ordered. We will also obtain serum chemistries and supplement accordingly as needed. We will reinforce diabetic education and dietary instructions at the time of this admission. We will also ask the patient to call her pump specialist regarding the current malfunction of her pump and possibly to replace the pump as indicated. We will obtain a hemoglobin A1c to confirm her prior glycemic control and baseline thyroid function studies and a lipid panel have been ordered. We will follow. Shannan Gipson MD
[2017-04-10 07:08] VITALS: O2SAT 97
[2017-04-10 07:54] LABS: ALB/GLOB RATIO 1.3 (1.1-1.8); ALKALINE PHOSPHATASE 57 U/L (38-133); ALT/SGPT 23 U/L (7-56); AST/SGOT 17 U/L (15-39); BILIRUBIN,TOTAL 0.4 mg/dL (0.2-1.3); BLOOD UREA NITROGEN 7 mg/dL (7-21); CALCIUM 8.1 mg/dL (8.4-10.5); CARBON DIOXIDE 23 mmol/L (21-33); CHLORIDE 108 mmol/L (98-107); CHOLESTEROL 130 mg/dL (130-200); GFR AFRICAN-AMERICAN > 60; GLUCOSE,RANDOM 88 mg/dL (70-110); POTASSIUM 3.7 mmol/L (3.6-5.0); SODIUM 139 mmol/L (132-148); TOTAL PROTEIN 5.4 g/dL (5.8-8.3)
[2017-04-10] MEDS: Insulin Lispro (humaLOG) LOW Coverage SC SCH ×2 (08:48→12:14)
[2017-04-10] MEDS: Insulin Lispro 1 UNITS/0.01 ML SC SCH ×2 (09:00→14:15)
--- NOTE | 2017-04-10 09:25 | CP.PCM.DIS ---
Provider - Provider Date of Admission: 04/09/17 01:01 Attending physician: Misha Rizvi JD, MD Primary care physician: Misha Rizvi JD, MD Time Spent in preparation of Discharge (in minutes): 30 Diagnosis - Discharge Diagnosis (1) Diabetic ketoacidosis associated with type 1 diabetes mellitus Status: Acute (2) Hypertension Status: Acute Hospital Course - Lab Results Lab Results: Most Recent Lab Values WBC 4.5 10^3/ul (4.5-11.0) D 04/08/17 20:25 RBC 4.30 10^6/uL (3.5-6.1) 04/08/17 20:25 Hgb 12.1 g/dL (12.0-16.0) 04/08/17 20:25 Hct 36.2 % (36.0-48.0) 04/08/17 20:25 MCV 84.2 fl (80.0-105.0) 04/08/17 20:25 MCH 28.1 pg (25.0-35.0) 04/08/17 20:25 MCHC 33.4 g/dl (31.0-37.0) 04/08/17 20:25 RDW 12.4 % (11.5-14.5) 04/08/17 20:25 Plt Count 230 10^3/uL (120.0-450.0) 04/08/17 20:25 MPV 9.8 fl (7.0-11.0) 04/08/17 20:25 Gran % 54.3 % (50.0-68.0) 04/08/17 20:25 Lymph % (Auto) 29.1 % (22.0-35.0) 04/08/17 20:25 [place] % (Auto) 8.3 % (1.0-6.0) H 04/08/17 20:25 Eos % (Auto) 7.4 % (1.5-5.0) H 04/08/17 20:25 Baso % (Auto) 0.9 % (0.0-3.0) 04/08/17 20:25 Gran # 2.43 (1.4-6.5) 04/08/17 20:25 Lymph # 1.3 (1.2-3.4) 04/08/17 20:25 [place] # 0.4 (0.1-0.6) 04/08/17 20:25 Eos # 0.3 (0.0-0.7) 04/08/17 20:25 Baso # 0.04 K/mm3 (0.0-2.0) 04/08/17 20:25 pCO2 31 mm/Hg (35-45) L 04/08/17 22:30 pO2 91.0 mm/Hg (80-100) 04/08/17 22:30 HCO3 17.5 mmol/L (21-28) L 04/08/17 22:30 ABG pH 7.36 (7.35-7.45) 04/08/17 22:30 ABG Total CO2 18.5 mmol.L (22-28) L 04/08/17 22:30 ABG O2 Saturation 97.9 % (95-98) 04/08/17 22:30 ABG O2 Content 15.5 ML/dl (15-23) 04/08/17 22:30 ABG Base Excess -6.9 mmol/L (-2.0-3.0) L 04/08/17 22:30 ABG Hemoglobin 11.4 g/dL (11.7-17.4) L 04/08/17 22:30 ABG Carboxyhemoglobin 1.2 % (0.5-1.5) 04/08/17 22:30 POC ABG HHb (Measured) 2.1 % (0-5) 04/08/17 22:30 ABG Methemoglobin 0.7 % (0.0-3.0) 04/08/17 22:30 ABG O2 Capacity 15.8 mL/dl (16-24) L 04/08/17 22:30 Hgb O2 Saturation 96.1 % (95.0-98.0) 04/08/17 22:30 FiO2 21.0 % 04/08/17 22:30 Sodium 139 mmol/L (132-148) 04/10/17 07:10 Potassium 3.7 mmol/L (3.6-5.0) 04/10/17 07:10 Chloride 108 mmol/L (98-107) H 04/10/17 07:10 Carbon Dioxide 23 mmol/L (21-33) 04/10/17 07:10 Anion Gap 12 (10-20) 04/10/17 07:10 BUN 7 mg/dL (7-21) 04/10/17 07:10 Creatinine 0.5 mg/dL (0.5-1.4) 04/10/17 07:10 Est GFR ( Amer) > 60 04/10/17 07:10 Est GFR (Non-Af Amer) > 60 04/10/17 07:10 POC Glucose (mg/dL) 205 mg/dL (65-110) H 04/10/17 08:45 Random Glucose 88 mg/dL (70-110) 04/10/17 07:10 Calcium 8.1 mg/dL (8.4-10.5) L 04/10/17 07:10 Total Bilirubin 0.4 mg/dL (0.2-1.3) 04/10/17 07:10 AST 17 U/L (15-39) 04/10/17 07:10 ALT 23 U/L (7-56) 04/10/17 07:10 Alkaline Phosphatase 57 U/L (38-133) 04/10/17 07:10 Total Protein 5.4 g/dL (5.8-8.3) L 04/10/17 07:10 Albumin 3.0 g/dL (3.0-4.8) 04/10/17 07:10 Globulin 2.3 gm/dL 04/10/17 07:10 Albumin/Globulin Ratio 1.3 (1.1-1.8) 04/10/17 07:10 Triglycerides 108 mg/dL (35-160) 04/10/17 07:10 Cholesterol 130 mg/dL (130-200) 04/10/17 07:10 LDL Cholesterol Direct 62 mg/dL (0-129) 04/10/17 07:10 HDL Cholesterol 52 mg/dL (29-60) 04/10/17 07:10 TSH 3rd Generation 2.33 mIU/mL (0.46-4.68) 04/10/17 07:10 Urine Color Yellow (YELLOW) 04/08/17 22:47 Urine Appearance Clear (CLEAR) 04/08/17 22:47 Urine pH 6.0 (4.7-8.0) 04/08/17 22:47 Ur Specific [place] 1.015 (1.005-1.035) 04/08/17 22:47 Urine Protein Negative mg/dL (<30 mg/dL) 04/08/17 22:47 Urine Glucose (UA) >=1000 mg/dL (NEGATIVE) 04/08/17 22:47 Urine Ketones >=80 mg/dL (NEGATIVE) 04/08/17 22:47 Urine Blood Negative (NEGATIVE) 04/08/17 22:47 Urine Nitrate Negative (NEGATIVE) 04/08/17 22:47 Urine Bilirubin Negative (NEGATIVE) 04/08/17 22:47 Urine Urobilinogen 0.2 E.U./dL (<1 E.U./dL) 04/08/17 22:47 Ur Leukocyte Esterase Negative Ernesto/uL (NEGATIVE) 04/08/17 22:47 Urine HCG, Qual Negative (NEGATIVE) 04/09/17 22:45 - Hospital Course Hospital Course: 47 yo female admtted thru ED on 04/08/17 with elevated glucose levels, fatigue, found to be in early DKA, started on IV fluid, insulin coverage, endocrinology consult Dr. Gipson. Pt had uneventful course, glucose levels now under control and pt stable for dc to home. She will resume her previous meds. Consistent carb diet, Activity ad latisha Discharge Exam - Head Exam Head Exam: ATRAUMATIC, NORMAL INSPECTION, NORMOCEPHALIC - Respiratory Exam Respiratory Exam: Clear to PA & Lateral, NORMAL BREATHING PATTERN - Cardiovascular Exam Cardiovascular Exam: REGULAR RHYTHM - GI/Abdominal Exam GI & Abdominal Exam: Normal Bowel Sounds, Soft - Back Exam Back exam: NORMAL INSPECTION - Neurological Exam Neurological exam: Alert, Oriented x3 - Skin Skin Exam: Dry, Warm Discharge Plan - Follow Up Plan Condition: FAIR Disposition: HOME/ ROUTINE Referrals: Misha Rizvi JD, MD [Primary Care Provider] -
[2017-04-10 11:27] VITALS: BP 126/72; PULSE 83
[2017-04-10 11:59] VITALS: TEMP 98.8
[2017-04-10] MEDS ORDERED: Insulin Lispro 1 UNITS/0.01 ML SC SCH (16:30)
[2017-04-10] MEDS ORDERED: Insulin Detemir 100 units/ml Vial (Levemir) SC SCH (22:00)
--- NOTE | 2017-04-10 22:28 | PN ---
ENDO FOLLOWUP NOTE DATE: 04/10/2017 SUBJECTIVE: This is a 47-year-old female with recent uncontrolled type 1 insulin-dependent diabetes, currently on a [employer] insulin pump, which apparently malfunctioned and developed supervening hyperglycemic acceleration and early diabetic ketoacidosis as noted thereof. Her glycemic levels are fluctuating, but much improved today with low normal glycemic levels overnight because of very nil and suboptimal oral intake as noted. Her glucose levels have ranged from 80 to 205 mg/dL today as noted. The claim service representative glucose was 58 mg/dL. Her hemoglobin A1c however is extremely elevated at 12.3% which is clearly indicative of suboptimal metabolic control of her diabetic condition even on the insulin pump as noted. Her latest chemistry showed a BUN of 7, sodium 139, potassium of 3.7, chloride 108, CO2 23, glucose 88 and creatinine 0.5. Her TSH is 2.33 as noted. So at this time, we will continue her low dose correctional scale using Humalog insulin as given. However, we will lower the Humalog down to 6 units subcutaneous t.i.d. before meals to start at dinner time today as ordered. We will also lower the Levemir to 20 units subcutaneous at bedtime daily to start tonight. We will titrate incremental as indicated to optimize metabolic control. She will follow with her medical doctor, Dr. Rizvi for outpatient metabolic and diabetic followup. We will actually inform today the [employer] pump company regarding a possible change in her insulin pump and/or insulin tubing supplies because of the supervening blockage of the connections as noted thereof. The patient has been advised to call her pump specialist in [place] regarding the aforementioned also at this time. We will obtain serial chem and supplement accordingly as needed. We will follow. Shannan Gipsno MD
== END 2017-04-10 14:27 | disposition home or self-care (01) ==
LOC: ED 19:49 → ERH 04-09 01:01 → 2RNO 04-09 02:10
PROVIDERS: ADMIT Internal Medicine; ATTEND Internal Medicine
DX: E10.10 Type 1 diabetes mellitus with ketoacidosis without coma (principal); E78.5 Hyperlipidemia, unspecified; I10 Essential (primary) hypertension; E86.0 Dehydration; F17.210 Nicotine dependence, cigarettes, uncomplicated; T85.694A Other mechanical complication of insulin pump, initial encounter; Y74.2 Prosthetic and other implants, materials and accessory general hospital and personal-use devices associated with adverse incidents; Z79.4 Long term (current) use of insulin; Z79.899 Other long term (current) drug therapy; Z98.51 Tubal ligation status; M17.11 Unilateral primary osteoarthritis, right knee; M46.97 Unspecified inflammatory spondylopathy, lumbosacral region; F32.89 Other specified depressive episodes; R40.2412 Glasgow coma scale score 13-15, at arrival to emergency department; Z83.3 Family history of diabetes mellitus; Z82.49 Family history of ischemic heart disease and other diseases of the circulatory system
CPT/HCPCS: 36415; 71020; 80053; 80061; 81003; 82803; 82948; 83036; 84443; 84703; 85025; 93005; 96360; 96374; 99285; G0378; J2405; J7040

== ENCOUNTER 2017-09-25 11:31 | Inpatient (IN) | payer OTHER ==
--- NOTE | 2017-09-25 12:40 | ED PDOC ---
Arrival/HPI - General Chief Complaint: High Blood Sugar Time Seen by Provider: 09/25/17 12:26 Historian: Patient, Family - History of Present Illness Narrative History of Present Illness (Text): 09/25/17 12:30 Emma Morgan is a 47 year old female, whose past medical history includes diabetes, who presents to the emergency department complaining of high blood sugar and vomiting since early this morning. Patient reports she began feeling nauseous last night and today began vomiting causing her to feel fatigue and body aches. Patient's family notes the insulin pump has malfunctioned before. Patient denies chest pain, shortness of breath, headache, fever, chills, cough, diarrhea, abdominal pain, dizziness or other complaints. Time/Duration: 24 hours Symptom Onset: Sudden Symptom Course: Unchanged Quality: Aching Context: Home Past Medical History - Provider Review Nursing Documentation Reviewed: Yes - Infectious Disease Hx of Infectious Diseases: None - Tetanus Immunization Tetanus Immunization: Unknown, >10 years Ago - Cardiac Hx Cardiac Disorders: Yes Hx Hypertension: Yes - Pulmonary Hx Respiratory Disorders: No - Neurological Hx Neurological Disorder: No - HEENT Hx HEENT Disorder: No - Renal Hx Renal Disorder: No - Endocrine/Metabolic Hx Endocrine Disorders: Yes Hx Diabetes Mellitus Type 1: Yes (dx 2000) - Hematological/Oncological Hx Blood Disorders: No - Integumentary Hx Dermatological Disorder: No - Musculoskeletal/Rheumatological Hx Musculoskeletal Disorders: Yes Hx Arthritis: Yes (right knee lower back) - Gastrointestinal Hx Gastrointestinal Disorders: No - Genitourinary/Gynecological Hx Genitourinary Disorders: No - Psychiatric Hx Psychophysiologic Disorder: Yes Hx Depression: Yes Hx Substance Use: No - Past Surgical History Past Surgical History: No Previous - Surgical History Hx Tubal Ligation: Yes - Anesthesia Hx Anesthesia: Yes Hx Anesthesia Reactions: Yes (Vomiting) Hx Malignant Hyperthermia: No - Suicidal Assessment Feels Threatened In Home Enviroment: No Family/Social History - Physician Review Nursing Documentation Reviewed: Yes Family/Social History: Unknown Family HX Smoking Status: Light Smoker < 10 Cigarettes Daily Hx Alcohol Use: Yes Hx Substance Use: No Hx Substance Use Treatment: No Allergies/Home Meds Allergies/Adverse Reactions: Allergies No Known Allergies Allergy (Verified 09/25/17 11:57) Home Medications: Home Meds Medication Instructions Recorded Confirmed Unobtainable 09/25/17 09/25/17 Review of Systems - Physician Review All systems were reviewed & negative as marked: Yes - Review of Systems Constitutional: Fatigue Respiratory: absent: SOB Cardiovascular: absent: Chest Pain Gastrointestinal: Nausea, Vomiting Musculoskeletal: Myalgias Physical Exam Vital Signs Reviewed: Yes Vital Signs Temp Pulse Resp BP Pulse Ox 09/25/17 14:40 99.5 F 110 H 20 147/64 97 09/25/17 11:52 98.6 F 116 H 17 134/85 96 Temperature: Afebrile Blood Pressure: Normal Pulse: Tachycardic Respiratory Rate: Normal Appearance: Positive for: Well-Appearing, Non-Toxic, Comfortable Pain Distress: Mild Mental Status: Positive for: Alert and Oriented X 3 - Systems Exam Head: Present: Atraumatic, Normocephalic Extroacular Muscles: Present: EOMI Conjunctiva: Present: Normal Mouth: Present: Dry Neck: Present: Normal Range of Motion Respiratory/Chest: Present: Clear to Auscultation, Good Air Exchange. No: Respiratory Distress, Accessory Muscle Use Cardiovascular: Present: Regular Rate and Rhythm, Normal S1, S2. No: Murmurs Abdomen: Present: Normal Bowel Sounds. No: Tenderness, Distention, Peritoneal Signs, Rebound, Guarding Lower Extremity: Present: Normal Inspection, NORMAL PULSES, Normal ROM, Neurovascularly Intact, Capillary Refill < 2 s. No: Edema, Cyanosis, Tenderness , Swelling, Erythema, Deformity Neurological: Present: GCS=15, CN II-XII Intact, Speech Normal Skin: Present: Warm, Dry, Normal Color. No: Rashes Psychiatric: Present: Alert, Oriented x 3, Normal Insight, Normal Concentration Medical Decision Making ED Course and Treatment: 09/25/17 Impression: 47 year old female with dry mucous membranes on exam complaining of vomiting and high blood sugar since yesterday Plan: -- Labs -- Reassess and disposition Progress Notes: - Lab Interpretations Lab Results: 09/25/17 13:15 09/25/17 13:15 Lab Results 09/25/17 13:20: Influenza Typ A,B (EIA) Negative for flu a/b 09/25/17 13:15: Sodium 135, Chloride 101, Potassium 5.4 H, Carbon Dioxide 9 L D , Anion Gap 30 H, BUN 16, Creatinine 0.6 L, Est GFR ( Amer) > 60, Est GFR (Non-Af Amer) > 60, Random Glucose 564 H* D, Calcium 10.0, Total Bilirubin 1.6 H, AST 26, ALT 23, Alkaline Phosphatase 125, Total Protein 6.8, Albumin 4.3 , Globulin 2.5, Albumin/Globulin Ratio 1.7 09/25/17 13:15: pO2 264 H, VBG pH 7.24 L, VBG pCO2 23.0 L, VBG HCO3 9.9 L, VBG Total CO2 10.6 L, VBG O2 Sat (Calc) 99.2 H, VBG Base Excess -15.6 L, VBG Potassium 5.3 H, Sodium 130.0 L, Chloride 96.0 L, Glucose 587 H* D, Lactate 2.5 H, FiO2 21.0, Venous Blood Potassium 5.3 H 09/25/17 13:15: WBC 12.0 H D, RBC 4.82, Hgb 13.3, Hct 41.0, MCV 85.1, MCH 27.6, MCHC 32.4, RDW 13.0, Plt Count 240, MPV 11.5 H, Gran % 88.2 H, Lymph % (Auto) 8.8 L, [place] % (Auto) 2.4, Eos % (Auto) 0.3 L, Baso % (Auto) 0.3, Gran # 10.58 H , Lymph # (Auto) 1.1 L, [place] # (Auto) 0.3, Eos # (Auto) 0.0, Baso # (Auto) 0.04 09/25/17 13:00: Urine Color Yellow, Urine Appearance Sl cloudy, Urine pH 6.0, Ur Specific [place] 1.020, Urine Protein Negative, Urine Glucose (UA) >=1000, Urine Ketones >=80, Urine Blood Small H, Urine Nitrate Negative, Urine Bilirubin Negative, Urine Urobilinogen 0.2, Ur Leukocyte Esterase Negative, Urine RBC 0 - 2, Urine WBC 0 - 2, Ur Epithelial Cells 0 - 2 I have reviewed the lab results: Yes - Medication Orders Current Medication Orders: Insulin Human Regular 100 (units/ Sodium Chloride) 100 mls @ 5 mls/hr IV .Q20H PRN; Protocol; 5 UNITS/HR PRN Reason: TITRATE PER MD ORDER Sodium Chloride (Sodium Chloride 0.9%) 500 mls @ 999 mls/hr IV .Q31M STA Stop: 09/25/17 15:13 Sodium Chloride (Sodium Chloride 0.9%) 1,000 mls @ 250 mls/hr IV .Q4H ONE Stop: 09/25/17 18:42 Discontinued Medications Sodium Chloride (Sodium Chloride 0.9%) 2,000 mls @ 999 mls/hr IV .Q2H1M STA Stop: 09/25/17 14:41 Last Admin: 09/25/17 12:30 Dose: 999 mls/hr eMAR Start Stop Document 09/25/17 12:30 [facility]17 [id number] Intravenous Solution Start Date 09/25/17 Start Time 12:30 End Date 09/25/17 End time 13:30 Total Infusion Time 60 Insulin Human Regular (Humulin R) 20 units SC STAT STA Stop: 09/25/17 12:44 Last Admin: 09/25/17 12:55 Dose: 20 units MAR Blood Glucose Document 09/25/17 12:55 [facility] (Rec: 09/25/17 12:[id number] Blood Glucose Finger Stick Blood Glucose (70-120) 429 Subcutaneous Administrations Document 09/25/17 12:55 [facility]ZA (Rec: 09/25/17 12:[id number] Injection Site MAR Injection Site Left Arm Charges for Administration # of Subcutaneous Administrations 1 Ondansetron HCl (Zofran Inj) 4 mg IVP STAT STA Stop: 09/25/17 13:15 Last Admin: 09/25/17 13:25 Dose: 4 mg IVP Administration Document 09/25/17 13:25 SURESH (Rec: 09/25/17 13:25 Kevin [id number]) Charges for Administration # of IVP Administrations 1 - Scribe Statement The provider has reviewed the documentation as recorded by the Lopez Smith Provider Scribe Attestation: All medical record entries made by the Scribe were at my direction and personally dictated by me. I have reviewed the chart and agree that the record accurately reflects my personal performance of the history, physical exam, medical decision making, and the department course for this patient. I have also personally directed, reviewed, and agree with the discharge instructions and disposition. Disposition/Present on Arrival - Present on Arrival Any Indicators Present on Arrival: No History of DVT/PE: No History of Uncontrolled Diabetes: Yes Urinary Catheter: No History of Decub. Ulcer: No History Surgical Site Infection Following: None - Disposition Have Diagnosis and Disposition been Completed?: Yes Diagnosis: Diabetic ketoacidosis associated with type 1 diabetes mellitus, Hyperglycemia Disposition: HOSPITALIZED Disposition Time: 15:00 Patient Plan: ICU Condition: IMPROVED Referrals: Misha Rizvi JD, MD [Primary Care Provider] - Follow up with primary Forms: [employer] (Welsh)
[2017-09-25] MEDS ORDERED: Sodium Chloride 0.9% 2,000 ML IV STA (12:41)
[2017-09-25] MEDS ORDERED: Insulin Regular 1 UNITS/0.01 ML ML SC STA (12:43)
[2017-09-25 13:25] LABS: BASO # 0.04 K/mm3 (0.0-2.0); BASO % 0.3 % (0.0-3.0); EOS % 0.3 % (1.5-5.0); GRAN # 10.58 (1.4-6.5); GRAN % 88.2 % (50.0-68.0); HEMOGLOBIN 13.3 g/dL (12.0-16.0); LYMPH # 1.1 (1.2-3.4); LYMPH % 8.8 % (22.0-35.0); MEAN CELL VOLUME 85.1 fl (80.0-105.0); MEAN CORPUSCULAR HEMOGLOBIN 27.6 pg (25.0-35.0); MEAN CORPUSCULAR HGB CONC 32.4 g/dl (31.0-37.0); MEAN PLATELET VOLUME 11.5 fl (7.0-11.0); MONO # 0.3 (0.1-0.6); MONO % 2.4 % (1.0-6.0); RBC 4.82 10^6/uL (3.5-6.1)
[2017-09-25 13:27] LABS: VENOUS BLOOD GAS BASE EXCESS -15.6 mmol/L (0.0-2.0); VENOUS BLOOD GAS PO2 264 mm/Hg (30-55); VENOUS BLOOD PH 7.24 (7.32-7.43)
[2017-09-25 13:39] LABS: URINE APPEARANCE SL CLOUDY (CLEAR); URINE BILIRUBIN NEGATIVE (NEGATIVE); URINE BLOOD SMALL (NEGATIVE); URINE COLOR YELLOW (YELLOW); URINE GLUCOSE (UA) >=1000 mg/dL (NEGATIVE); URINE LEUKOCYTE ESTERASE NEGATIVE Leu/uL (NEGATIVE); URINE NITRATE NEGATIVE (NEGATIVE); URINE PROTEIN NEGATIVE mg/dL (<30 mg/dL); URINE UROBILINOGEN 0.2 E.U./dL (<1 E.U./dL)
[2017-09-25 13:49] LABS: URINE EPITHELIAL CELLS 0 - 2 /hpf (0-5); URINE RBC 0 - 2 /hpf (0-2); URINE WBC 0 - 2 /hpf (0-6)
[2017-09-25 14:10] LABS: ALB/GLOB RATIO 1.7 (1.1-1.8); ALBUMIN 4.3 g/dL (3.0-4.8); ALT/SGPT 23 U/L (7-56); AST/SGOT 26 U/L (14-36); BLOOD UREA NITROGEN 16 mg/dL (7-21); GFR AFRICAN-AMERICAN > 60; GFR NON-AFRICAN AMERICAN > 60
[2017-09-25] MEDS ORDERED: Sodium Chloride 0.9% 500 ML IV STA (14:43)
[2017-09-25] MEDS ORDERED: Sodium Chloride 0.9% 1,000 ML IV ONE (14:43)
[2017-09-25] MEDS ORDERED: Insulin Regular 100 UNITS in Sodium Chloride 0.9% 99 ML IV PRN ×2 (14:44→16:45)
--- NOTE | 2017-09-25 15:43 | CP.PCM.CON ---
<Jo-Ann Gannon - Last Filed: 09/25/17 15:43> History of Present Illness - History of Present Illness History of Present Illness: 47 year old female PMHx IDDM on insulin pump presents to [facility] [place] [facility] ED with complaints of elevated blood sugar and multiple episodes of nonbloody nonbilious emesis since the morning. Patient states she was nauseous the night before and began to experience tiredness, body aches, subjective fever, and chills. Patient has been seen in the ED and hospitalized before for DKA and has been known to have malfunctioning insulin pump. On complete ROS patient denied headache, dizziness , chest pain, palpitations, SOB, cough, abd pain, bowel/bladder complaints, pain /swelling in her legs b/l. ROS: unobtainable PMHx: IDDM PSurgHx: tubal ligation PHospitalization: 04/09/17 for DKA PERVisits: multiple for similar complaints Social Hx: light tobacco use and social EtOH Meds: Insulin pump ALL: NKDA Review of Systems - Constitutional Constitutional: As Per HPI, Chills, Fever - EENT Eyes: As Per HPI. absent: Blurred Vision Ears: As Per HPI. absent: Dizziness Nose/Mouth/Throat: As Per HPI. absent: Sore Throat - Cardiovascular Cardiovascular: As Per HPI. absent: Chest Pain, Dyspnea, Edema - Respiratory Respiratory: As Per HPI. absent: Cough, Dyspnea, Dyspnea on Exertion - Gastrointestinal Gastrointestinal: As Per HPI, Nausea, Vomiting. absent: Abdominal Pain, Coffee Ground Emesis, Constipation, Diarrhea - Genitourinary Genitourinary: As Per HPI. absent: Dysuria - Musculoskeletal Musculoskeletal: As Per HPI. absent: Numbness, Tingling - Integumentary Integumentary: As Per HPI. absent: Rash - Neurological Neurological: As Per HPI. absent: Dizziness, Headaches - Psychiatric Psychiatric: As Per HPI. absent: Anxiety - Endocrine Endocrine: As Per HPI. absent: Palpitations - Hematologic/Lymphatic Hematologic: As Per HPI. absent: Easy Bleeding, Easy Bruising Past Patient History - Infectious Disease Hx of Infectious Diseases: None - Tetanus Immunizations Tetanus Immunization: Unknown, >10 years Ago - Past Social History Smoking Status: Light Smoker < 10 Cigarettes Daily - CARDIAC Hx Cardiac Disorders: Yes Hx Hypertension: Yes - PULMONARY Hx Respiratory Disorders: No - NEUROLOGICAL Hx Neurological Disorder: No - HEENT Hx HEENT Problems: No - RENAL Hx Chronic Kidney Disease: No - ENDOCRINE/METABOLIC Hx Endocrine Disorders: Yes Hx Diabetes Mellitus Type 1: Yes (dx 1999) - HEMATOLOGICAL/ONCOLOGICAL Hx Blood Disorders: No - INTEGUMENTARY Hx Dermatological Problems: No - MUSCULOSKELETAL/RHEUMATOLOGICAL Hx Musculoskeletal Disorders: Yes Hx Arthritis: Yes (right knee lower back) - GASTROINTESTINAL Hx Gastrointestinal Disorders: No - GENITOURINARY/GYNECOLOGICAL Hx Genitourinary Disorders: No - PSYCHIATRIC Hx Psychophysiologic Disorder: Yes Hx Depression: Yes Hx Substance Use: No - SURGICAL HISTORY Hx Tubal Ligation: Yes - ANESTHESIA Hx Anesthesia: Yes Hx Anesthesia Reactions: Yes (Vomiting) Hx Malignant Hyperthermia: No Meds Allergies/Adverse Reactions: Allergies Allergy/AdvReac Type Severity Reaction Status Date / Time No Known Allergies Allergy Verified 09/25/17 15:54 - Medications Medications: Current Medications Famotidine (Pepcid) 20 mg IVP Q12 [facility] Heparin Sodium (Porcine) (Heparin) 5,000 units SC Q12 [facility]EE[facility] PRN Reason: Protocol Insulin Human Regular 100 (units/ Sodium Chloride) 100 mls @ 5 mls/hr IV .Q20H PRN; Protocol; 5 UNITS/HR PRN Reason: TITRATE PER MD ORDER Sodium Chloride (Sodium Chloride 0.9%) 1,000 mls @ 250 mls/hr IV .Q4H ONE Stop: 09/25/17 18:42 Sodium Chloride (Sodium Chloride 0.9%) 1,000 mls @ 150 mls/hr IV .Q6H40M [facility] Physical Exam - Constitutional Appears: Non-toxic, No Acute Distress - Head Exam Head Exam: ATRAUMATIC, NORMAL INSPECTION, NORMOCEPHALIC - Eye Exam Eye Exam: EOMI, Normal appearance, PERRL. absent: Conjunctival injection, Scleral icterus Pupil Exam: NORMAL ACCOMODATION, PERRL - ENT Exam ENT Exam: Mucous Membranes Dry - Neck Exam Neck exam: Positive for: Full Rom, Normal Inspection - Respiratory Exam Respiratory Exam: Clear to Auscultation Bilateral, NORMAL BREATHING PATTERN. absent: Accessory Muscle Use, Rales, Rhonchi, Wheezes, Respiratory Distress - Cardiovascular Exam Cardiovascular Exam: Tachycardia, REGULAR RHYTHM, +S1, +S2. absent: Systolic Murmur - GI/Abdominal Exam GI & Abdominal Exam: Normal Bowel Sounds, Soft. absent: Distended, Firm, Guarding, Rigid, Tenderness - Extremities Exam Extremities exam: Positive for: normal capillary refill, normal inspection, pedal pulses present. Negative for: pedal edema - Back Exam Back exam: NORMAL INSPECTION. absent: rash noted - Neurological Exam Neurological exam: Alert, CN II-XII Intact, Oriented x3 - Psychiatric Exam Psychiatric exam: Normal Affect, Normal Mood - Skin Skin Exam: Dry, Intact, Normal Color, Warm Results - Vital Signs Recent Vital Signs: Last Vital Signs Temp 99.5 F 09/25/17 14:40 Pulse 110 H 09/25/17 14:40 Resp 20 09/25/17 14:40 BP 147/64 09/25/17 14:40 Pulse Ox 97 09/25/17 14:40 - Labs Result Diagrams: 09/25/17 13:15 09/25/17 13:15 Assessment & Plan - Assessment and Plan (Free Text) Assessment: 47 year old female PMHx IDDM on insulin pump presents to [facility] [facility] ED with complaints of elevated blood sugar and multiple episodes of nonbloody nonbilious emesis for 1 day. Found to have BG of 564 in ED. Patient was started on fluids and insulin gtt and transferred to ICU for close monitoring. Plan: - NPO - Calculated anion gap : 25 - Insulin gtt - Accucheck q1h - NS @ 150cc/hr - f/u HgbA1c - f/u Beta hydroxybutyrate - BMP q4h - replete electrolytes as needed - leukocytosis likely reactionary - patient is afebrile - f/u blood and urine culture and procalcitonin - f/u CXR - strict Is and Os - HoB above 30 - Flu negative - Endocrinology Dr. Gipson consulted GI ppx: Pepcid 20mg ivp q12 DVT ppx: Heparin 5000u sc q12, SCDs Diet: NPO Discussed with Dr. Valentina Gannon PGY2 <Shant Montgomery - Last Filed: 09/25/17 16:33> Meds - Medications Medications: Current Medications Famotidine (Pepcid) 20 mg IVP Q12 [facility] Heparin Sodium (Porcine) (Heparin) 5,000 units SC Q12 [facility]EE[facility] PRN Reason: Protocol Insulin Human Regular 100 (units/ Sodium Chloride) 100 mls @ 5 mls/hr IV .Q20H PRN; Protocol; 5 UNITS/HR PRN Reason: TITRATE PER MD ORDER Sodium Chloride (Sodium Chloride 0.9%) 1,000 mls @ 250 mls/hr IV .Q4H ONE Stop: 09/25/17 18:42 Last Admin: 09/25/17 15:49 Dose: 250 mls/hr Sodium Chloride (Sodium Chloride 0.9%) 1,000 mls @ 150 mls/hr IV .Q6H40M [facility]EE[facility] Results - Vital Signs Recent Vital Signs: Last Vital Signs Temp 99.5 F 09/25/17 14:40 Pulse 110 H 09/25/17 14:40 Resp 20 09/25/17 14:40 BP 147/64 09/25/17 14:40 Pulse Ox 97 09/25/17 14:40 - Labs Result Diagrams: 09/25/17 13:15 09/25/17 13:15 Labs: Laboratory Results - last 24 hr 09/25/17 15:53 POC Glucose (mg/dL) 181 H Assessment & Plan - Assessment and Plan (Free Text) Plan: Patient seen and examined on rounds with resident, agree with note with following additions/exceptions: Patient is 47yo female with PMHx of IDDM, on insulin pump, presents with elevated FS readings at home, and NBNB vomiting. Pt endorses mild fevers, chills , and cough, which is non productive, without chest pain or SOB. No other constitutional symptoms. In the ER found to have AG acidosis with DKA. Afebrile , HD stable, comfortable. Pt to receive 3L NS bolus and start on Insulin drip. DKA Dehydration IDDM Cough Recommend: - supp o2 as needed - panculture, UCx, BCx, UA, Procal - CXR - BP control - NPO - IVF - Insulin drip 0.1u/kg/hr - check HgbA1C - Endo consult - Check lipid panel - Keep insulin pump off for now - GI ppx - DVT ppx - Admit to MICU
[2017-09-25] MEDS ORDERED: Sodium Chloride 0.9% 1,000 ML IV SCH ×2 (15:45→19:00)
--- NOTE | 2017-09-25 17:06 | CP.PCM.HP ---
History of Present Illness - History of Present Illness History of Present Illness: 47 year old female PMHx IDDM on insulin pump presents to [facility] ED with complaints of elevated blood sugar and multiple episodes of nonbloody nonbilious emesis since the morning. Patient states she was nauseous the night before and began to experience tiredness, body aches, subjective fever, and chills. Patient has been seen in the ED and hospitalized before for DKA and has been known to have malfunctioning insulin pump. On complete ROS patient denied headache, dizziness , chest pain, palpitations, SOB, cough, abd pain, bowel/bladder complaints, pain /swelling in her legs b/l. ROS: unobtainable PMHx: IDDM PSurgHx: tubal ligation PHospitalization: 04/09/17 for DKA PERVisits: multiple for similar complaints Social Hx: light tobacco use and social EtOH Meds: Insulin pump ALL: NKDA Present on Admission - Present on Admission Any Indicators Present on Admission: Yes History of DVT/PE: No History of Uncontrolled Diabetes: Yes Urinary Catheter: No Decubitus Ulcer Present: No Review of Systems - Constitutional Constitutional: As Per HPI. absent: Chills, Fever - EENT Eyes: As Per HPI. absent: Blurred Vision Ears: As Per HPI. absent: Dizziness Nose/Mouth/Throat: As Per HPI. absent: Sore Throat - Cardiovascular Cardiovascular: As Per HPI. absent: Chest Pain, Dyspnea, Edema - Respiratory Respiratory: As Per HPI. absent: Cough, Dyspnea, Dyspnea on Exertion - Gastrointestinal Gastrointestinal: As Per HPI, Nausea, Vomiting. absent: Abdominal Pain, Constipation, Diarrhea - Genitourinary Genitourinary: As Per HPI. absent: Dysuria - Musculoskeletal Musculoskeletal: As Per HPI. absent: Numbness, Tingling - Integumentary Integumentary: As Per HPI. absent: Dry Skin, Rash - Neurological Neurological: As Per HPI. absent: Dizziness, Headaches - Psychiatric Psychiatric: As Per HPI. absent: Anxiety - Endocrine Endocrine: As Per HPI. absent: Palpitations - Hematologic/Lymphatic Hematologic: As Per HPI. absent: Easy Bleeding, Easy Bruising Past Patient History - Infectious Disease Hx of Infectious Diseases: None - Tetanus Immunizations Tetanus Immunization: Unknown, >10 years Ago - Past Social History Smoking Status: Light Smoker < 10 Cigarettes Daily - CARDIAC Hx Cardiac Disorders: Yes Hx Hypertension: Yes - PULMONARY Hx Respiratory Disorders: No - NEUROLOGICAL Hx Neurological Disorder: No - HEENT Hx HEENT Problems: No - RENAL Hx Chronic Kidney Disease: No - ENDOCRINE/METABOLIC Hx Endocrine Disorders: Yes Hx Diabetes Mellitus Type 1: Yes (dx 1999) - HEMATOLOGICAL/ONCOLOGICAL Hx Blood Disorders: No - INTEGUMENTARY Hx Dermatological Problems: No - MUSCULOSKELETAL/RHEUMATOLOGICAL Hx Musculoskeletal Disorders: Yes Hx Arthritis: Yes (right knee lower back) - GASTROINTESTINAL Hx Gastrointestinal Disorders: No - GENITOURINARY/GYNECOLOGICAL Hx Genitourinary Disorders: No - PSYCHIATRIC Hx Psychophysiologic Disorder: Yes Hx Depression: Yes Hx Substance Use: No - SURGICAL HISTORY Hx Tubal Ligation: Yes - ANESTHESIA Hx Anesthesia: Yes Hx Anesthesia Reactions: Yes (Vomiting) Hx Malignant Hyperthermia: No Meds Allergies/Adverse Reactions: Allergies Allergy/AdvReac Type Severity Reaction Status Date / Time No Known Allergies Allergy Verified 09/25/17 15:54 Physical Exam - Constitutional Appears: Non-toxic, No Acute Distress - Head Exam Head Exam: ATRAUMATIC, NORMAL INSPECTION, NORMOCEPHALIC - Eye Exam Eye Exam: EOMI, Normal appearance, PERRL. absent: Conjunctival injection, Scleral icterus Pupil Exam: NORMAL ACCOMODATION, PERRL - ENT Exam ENT Exam: Mucous Membranes Dry - Neck Exam Neck exam: Positive for: Normal Inspection - Respiratory Exam Respiratory Exam: Clear to Auscultation Bilateral, NORMAL BREATHING PATTERN. absent: Accessory Muscle Use, Rales, Rhonchi, Wheezes - Cardiovascular Exam Cardiovascular Exam: Tachycardia, REGULAR RHYTHM, +S1, +S2 - GI/Abdominal Exam GI & Abdominal Exam: Normal Bowel Sounds, Soft. absent: Firm, Guarding, Rigid, Tenderness - Rectal Exam Rectal Exam: Deferred - Extremities Exam Extremities exam: Positive for: normal capillary refill, normal inspection, pedal pulses present. Negative for: pedal edema - Back Exam Back exam: NORMAL INSPECTION. absent: rash noted - Neurological Exam Neurological exam: Alert, CN II-XII Intact, Oriented x3 - Psychiatric Exam Psychiatric exam: Normal Affect, Normal Mood - Skin Skin Exam: Dry, Intact, Normal Color, Warm Results - Vital Signs Recent Vital Signs: Last Vital Signs Temp 99.1 F 09/25/17 16:45 Pulse 99 H 09/25/17 16:45 Resp 20 09/25/17 16:45 BP 145/71 09/25/17 16:45 Pulse Ox 98 09/25/17 16:45 - Labs Result Diagrams: 09/25/17 13:15 09/25/17 13:15 Labs: Laboratory Results - last 24 hr 09/25/17 15:53 POC Glucose (mg/dL) 181 H Assessment & Plan - Assessment and Plan (Free Text) Assessment: 47 year old female PMHx IDDM on insulin pump presents to [facility] ED with complaints of elevated blood sugar and multiple episodes of nonbloody nonbilious emesis for 1 day. Found to have BG of 564 in ED. Patient was started on fluids and insulin gtt and transferred to ICU for close monitoring. 1. DKA Plan: - NPO - Calculated anion gap : 25 - Free water deficit: -1.8L - Insulin gtt - Accucheck q1h - NS @ 150cc/hr - f/u HgbA1c - f/u Beta hydroxybutyrate and fructosamine - f/u thyroid studies and lipid panel - BMP q4h - replete electrolytes as needed - leukocytosis likely reactionary - patient is afebrile - f/u blood and urine culture and procalcitonin - f/u CXR - strict Is and Os - HoB above 30 - Flu negative - Endocrinology Dr. Gipson consulted GI ppx: Pepcid 20mg ivp q12 DVT ppx: Heparin 5000u sc q12, SCDs Diet: NPO Discussed with Dr. Beka Gannon PGY2
[2017-09-25] MEDS ORDERED: Dextrose 5%/0.45% NS 1,000 ML IV SCH ×2 (17:30→19:15)
--- NOTE | 2017-09-25 17:33 | RAD ---
HISTORY: routine baseline COMPARISON: 04/08/2017 FINDINGS: LUNGS: No active pulmonary disease. PLEURA: No significant pleural effusion identified, no pneumothorax apparent. CARDIOVASCULAR: Normal. OSSEOUS STRUCTURES: No significant abnormalities. VISUALIZED UPPER ABDOMEN: Normal. OTHER FINDINGS: None. IMPRESSION: No active disease. No significant interval change compared to the prior examination(s).
--- NOTE | 2017-09-25 17:52 | CARD ---
APPROVED REPORT EKG Measurement Heart [id number] <Conclusion> Poor data quality, interpretation may be adversely affected Sinus tachycardia Possible Left atrial enlargement Rightward axis Borderline ECG
[2017-09-25 18:27] LABS: VENOUS BLOOD GAS BASE EXCESS -3.9 mmol/L (0.0-2.0); VENOUS BLOOD GAS PO2 23 mm/Hg (30-55); VENOUS BLOOD PH 7.34 (7.32-7.43)
[2017-09-25 18:30] VITALS: BMI 29.7
[2017-09-25] MEDS ORDERED: Influenza Vaccine 60 mcg/0.5 mL SYR (4YR UP) IM ONE (18:30)
[2017-09-25] MEDS ORDERED: Pneumococcal 23-Valent Vaccine IM ONE (18:30)
[2017-09-25 19:08] LABS: BLOOD UREA NITROGEN 14 mg/dL (7-21); CALCIUM 9.5 mg/dL (8.4-10.5); GFR AFRICAN-AMERICAN > 60; GFR NON-AFRICAN AMERICAN > 60; HDL CHOLESTEROL 82 mg/dL (29-60); LDL CHOLESTEROL 76 mg/dL (0-129)
[2017-09-25 19:13] LABS: FREE T4 1.16 ng/dL (0.78-2.19)
[2017-09-25] MEDS ORDERED: Insulin Detemir 100 units/ml Vial (Levemir) SC ONE (19:38)
[2017-09-25] MEDS ORDERED: Sodium Chloride 0.9% 1,000 ML IV STA (20:05)
[2017-09-25] MEDS ORDERED: Insulin Lispro (HUMAlog) HIGH Coverage SC SCH (22:00)
[2017-09-26] MEDS: Sodium Chloride 0.45% 1,000 ML IV SCH ×2 (00:12→07:53)
[2017-09-26 03:39] LABS: FRUCTOSAMINE 569 umol/L (190-270)
--- NOTE | 2017-09-26 04:16 | CON ---
DATE: ENDOCRINOLOGY CONSULTATION LOCATION: In ER holding, going to ICU 128, room 1. HISTORY OF PRESENT ILLNESS: This is a 47-year-old female with known history of type 1 insulin-dependent diabetes, currently on outpatient insulin pump use, with sudden onset of nausea, dyspepsia, and intractable vomiting episodes today with generalized body weakness and progressive bouts of dizziness and lightheadedness, prompting this ER consult, and subsequent admission. She has been referred now for diabetic evaluation with diabetic ketoacidosis and dehydration as noted. PAST MEDICAL HISTORY: As mentioned above, history of type 1 insulin-dependent diabetes diagnosed in insulin pump with having near optimal metabolic control over the left few months prior to admission. She is not aware of her recent A1c level as noted. She had a prior admission in 2017 for diabetic ketoacidosis, also related to malfunctioning of her insulin pump. FAMILY HISTORY: Positive for hypertension and diabetes. SOCIAL HISTORY: Patient admits to smoking half a pack a day for some years now with no other illicit drug use. She has a very supportive family otherwise. REVIEW OF SYSTEMS: As mentioned above. Admits to generalized body weakness with progressive bouts of dizziness and lightheadedness, worse in the day of admission. No chest pains, palpitations or PND. Her oral intake has been variable with nausea, dyspepsia and recent bouts of intractable vomiting as mentioned. Also, admits to marked polyuria, nocturia and polydipsia today as noted. PHYSICAL EXAMINATION: GENERAL: Average built female, in no apparent distress. VITAL SIGNS: Blood pressure of 140/80, pulse of 70 beats per minute and regular, temperature 98, respirations 20, height is 5 feet 6 inches, and weight is 184 pounds. HEENT: Head is normocephalic. Eyes are anicteric with pink conjunctivae. Funduscopy not possible at this time. Ears, nose, and throat are otherwise normal. NECK: Supple. Thyroid gland is normal sized. No carotid bruits or cervical adenopathy. CARDIOPULMONARY: Adynamic precordium. S1 and S2 is rapid and regular. LUNGS: Clear to auscultation. ABDOMEN: Flat and soft with positive bowel sounds. EXTREMITIES: No peripheral pedal edema. Pulses are +2 bilaterally. LABORATORY DATA: Initial chemistry showed a BUN of 16, sodium 135, potassium 5.4, chloride 101, CO2 , glucose is 564, creatinine 0.6. Subsequent glucose was 181. ASSESSMENT: This is a 47-year-old female with uncontrolled and decompensated type 1 insulin-dependent diabetes, presenting here with diabetic ketoacidosis and dehydration with spurious hyperkalemia and is now being referred for diabetic evaluation and management. PLAN OF MANAGEMENT: We will put aside her insulin pump for now and we will follow the [employer] to check out her insulin pump as to whether there is any underlying malfunction as noted. We will continue the intensive insulin therapy with an insulin drip infusion as ordered, and also the vigorous IV hydration as given. We will obtain serial chemistries and supplement accordingly as needed. As she is a type 1 diabetic good health, we will be able to withheld dramatically with overnight insulin drip infusion and as her oral intake improves tomorrow, then we can switch her back to a more physiologic basal and bolus insulin drug combination, at least for the inpatient diabetic management. We will obtain diabetic education for healthier food choices and also nutritional counseling for a healthier food choices. We will obtain serial chemistries and supplement accordingly as needed. Shannan Gipson MD
[2017-09-26] MEDS ORDERED: Dextrose 50% SYRINGE Inj (50 ml) IVP ONE (07:21)
[2017-09-26] MEDS ORDERED: Insulin Lispro 1 UNITS/0.01 ML SC SCH (07:30)
[2017-09-26 07:35] LABS: FREE T4 1.38 ng/dL (0.78-2.19); T4 7.6 ug/dL (5.5-11.0)
[2017-09-26 07:44] LABS: BASO # 0.02 K/mm3 (0.0-2.0); BASO % 0.3 % (0.0-3.0); EOS # 0.1 (0.0-0.7); EOS % 2.3 % (1.5-5.0); GRAN # 3.4 (1.4-6.5); GRAN % 55.1 % (50.0-68.0); HEMOGLOBIN 11.4 g/dL (12.0-16.0); LYMPH # 2.2 (1.2-3.4); LYMPH % 35.2 % (22.0-35.0); MEAN CELL VOLUME 83.4 fl (80.0-105.0); MEAN CORPUSCULAR HEMOGLOBIN 26.6 pg (25.0-35.0); MEAN CORPUSCULAR HGB CONC 31.9 g/dl (31.0-37.0); MEAN PLATELET VOLUME 10.2 fl (7.0-11.0); MONO # 0.4 (0.1-0.6); MONO % 7.1 % (1.0-6.0); RBC 4.28 10^6/uL (3.5-6.1); WHITE BLOOD COUNT 6.2 10^3/ul (4.5-11.0)
[2017-09-26] MEDS: Insulin Lispro (humaLOG) LOW Coverage SC SCH ×4 (07:47→21:49)
[2017-09-26] MEDS: Insulin Lispro 1 UNITS/0.01 ML SC SCH ×3 (07:47→17:01)
[2017-09-26 07:49] LABS: ALB/GLOB RATIO 1.3 (1.1-1.8); ALBUMIN 3.4 g/dL (3.0-4.8); ALT/SGPT 22 U/L (7-56); AST/SGOT 23 U/L (14-36); BILIRUBIN,DIRECT 0.3 mg/dL (0.0-0.4); BLOOD UREA NITROGEN 11 mg/dL (7-21); CALCIUM 8.7 mg/dL (8.4-10.5); GFR AFRICAN-AMERICAN > 60; GFR NON-AFRICAN AMERICAN > 60; MAGNESIUM 1.6 mg/dL (1.7-2.2)
--- NOTE | 2017-09-26 07:49 | CP.PCM.PN ---
Subjective - Date & Time of Evaluation Date of Evaluation: 09/26/17 Time of Evaluation: 07:15 - Subjective Subjective: IM Progress Note for Dr. Ireland Service Pt seen and examined at bedside in ICU. Gap closed overnight, switched off insulin drip to nursing home and with-meals coverage as per Dr. Gipson (Endocrinology) . No acute events reported overnight, but this AM, fingerstick glucose reported at 49, and patient admitted to feeling slightly lightheaded, so AM lispro dose held, given juice and half-amp of D50, will follow up. Mentation remains intact and appropriate. Objective - Vital Signs/Intake and Output Vital Signs (last 24 hours): Temp Pulse Resp BP Pulse Ox 99.1 F 95 H 16 125/66 100 09/25/17 18:00 09/26/17 05:30 09/26/17 05:30 09/26/17 05:00 09/26/17 05:30 Intake and Output: 09/26/17 09/26/17 06:59 18:59 Intake Total 2175 Output Total 500 Balance 1675 - Medications Medications: Current Medications Famotidine (Pepcid) 20 mg IVP Q12 [facility] Last Admin: 09/25/17 21:24 Dose: 20 mg Heparin Sodium (Porcine) (Heparin) 5,000 units SC Q12 [facility] PRN Reason: Protocol Last Admin: 09/25/17 21:24 Dose: 5,000 units Sodium Chloride (Sodium Chloride 0.45%) 1,000 mls @ 125 mls/hr IV .Q8H [facility] Last Admin: 09/26/17 00:12 Dose: 125 mls/hr Insulin Detemir (Levemir) 24 unit SC HS [facility] Insulin Human Lispro (Humalog Low) 0 units SC ACHS [facility] PRN Reason: Protocol Insulin Human Lispro (Humalog) 12 units SC ACTID [facility] Metoclopramide HCl (Reglan) 5 mg IVP ACHS [facility] Last Admin: 09/25/17 22:18 Dose: 5 mg Nicotine (Nicoderm Cq) 1 patch TD DAILY [facility] Last Admin: 09/25/17 21:15 Dose: 1 patch Ondansetron HCl (Zofran Inj) 4 mg IVP Q6H PRN PRN Reason: Nausea/Vomiting - Labs Labs: 09/25/17 18:23 APTT 26.2 Seconds (25.1-36.5) 09/26/17 05:30 - Constitutional Appears: Non-toxic, No Acute Distress - Head Exam Head Exam: ATRAUMATIC, NORMAL INSPECTION, NORMOCEPHALIC - Eye Exam Eye Exam: EOMI, Normal appearance. absent: Conjunctival injection, Scleral icterus Pupil Exam: absent: Irregular, Unequal - ENT Exam ENT Exam: Mucous Membranes Moist - Neck Exam Neck Exam: Full ROM, Normal Inspection - Respiratory Exam Respiratory Exam: Clear to Ausculation Bilateral, NORMAL BREATHING PATTERN. absent: Accessory Muscle Use, Chest Wall Tenderness, Decreased Breath Sounds, Rales, Rhonchi, Wheezes - Cardiovascular Exam Cardiovascular Exam: REGULAR RHYTHM, RRR, +S1, +S2. absent: Bradycardia, Tachycardia, Irregular Rhythm, +S4 - GI/Abdominal Exam GI & Abdominal Exam: Soft, Normal Bowel Sounds. absent: Distended, Firm, Guarding, Rigid, Tenderness - Extremities Exam Extremities Exam: Normal Capillary Refill, Normal Inspection. absent: Calf Tenderness, Pedal Edema, Tenderness - Neurological Exam Neurological Exam: Alert, Awake, Oriented x3 Additional comments: moving all extremities spontaneously, motor grossly intact and equal bilaterally - Psychiatric Exam Psychiatric exam: Normal Affect, Normal Mood - Skin Skin Exam: Dry, Intact, Normal Color, Warm Assessment and Plan - Assessment and Plan (Free Text) Assessment: This is a 47 yo F with PMH of IDDM on insulin pump presenting with DKA, concerning for pump malfunction, which she has experienced in the past. She was admitted to the ICU for Insulin drip (gap closed, drip off), and is pending an eval of her pump by the haunted history tour guide as per Endo. Plan: 1) DKA -pump malfunction vs dietary non-compliance -A1c 11.4 -Gap closed overnight, now on Levemir 24u HS, Lispro 12u AC, and Low-dose lispro sliding scale -Holding AM lispro due to episode of hypoglycemia, resolved with PO juice and 1/ 2 amp D50, will reassess and f/u with Endo -[place] (Dr. Gipson) consulted, appreciate all recs -Pending eval of pump by haunted history tour guide as per Endo -continue NS 125 cc/hr -thyroid panel wnl, lipid panel reviewed, -simulation educator consulted 2) Leukocytosis - resolved -likely reactive to DKA, now 6.2, afebrile -pending procal and blood/urine cx results 3) Electrolyte abnormalities -now hypokalemic, likely due to insulin, 40mg PO x1 KCl solution ordered, adding 20 mEq KCl injections per bag of NS -Mag low at 1.6, 2g IVPB x1 ordered Dispo: ICU, ransfer to Med/Surg now that gap has closed, pending eval by Insulin pump haunted history tour guide and simulation educator FEN: Consistent Carb, NS 125 cc/hr + 20 mEq KCl Access: Peripheral IV Consults: Endo Ppx: Protonix for GI, Heparin for DVT Patient seen, reviewed, and discussed with attending, Dr. Ireland.
[2017-09-26] MEDS ORDERED: Magnesium Sulfate 2 GM in Sodium Chloride 0.9% 100 ML IVPB ONE (08:02)
[2017-09-26] MEDS ORDERED: Potassium Chloride 40 mEq/30 ml LIQ UD PO ONE (08:03)
--- NOTE | 2017-09-26 08:06 | HP ---
HISTORY OF PRESENT ILLNESS: The patient is a 47-year-old female who came in with complaints of nausea, vomiting, fatigue, tiredness less than 24 hours. According to the patient, the patient was in her usual state of health over the weekend and the past few weeks. The patient also reports that her blood sugar was averaging around mid 200s, but today, patient's blood sugar was high with the patient complaining of nausea and vomiting, with body aches and fatigue. Patient came to the emergency room as a walk-in. According to the ER physician evaluation, the patient presented with complaints of reporting high blood sugar, but the patient reported to me that the patient's blood sugar has been around mid 200s in the last few days, but did complain of vomiting and nausea, which started in the last 24 hours. Also complains of body aches and fatigue. The patient also reports that there may be a malfunctioning of her insulin pump. REVIEW OF SYSTEMS: A 13-system review was done, pertinent positive and negative dictated above. CODE STATUS: Full code. LIVING WILL ADVANCE DIRECTIVE: None. ALLERGIES: None. Height is 5 feet 6 inches. Weight is 184. BMI is 30. HOME MEDICATIONS: Diclofenac 75 mg twice a day, Claritin 10 mg daily, Zestril 10 mg daily. Patient is on NovoLog insulin pump. The patient is under care of early interventionist, Dr. Mendoza. SOCIAL HISTORY: Positive for smoking, positive for alcohol use according to the [employer] information. The patient denies being . 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 FAMILY HISTORY: Positive for diabetes according to the patient. MENSTRUAL HISTORY: The patient denies being . MARITAL HISTORY. The patient states that she is single, not . PAST MEDICAL HISTORY: Significant for insulin-requiring diabetes mellitus for the last 20 years; history of hypertension; history of multiple admissions for diabetic ketoacidosis; history of insulin-requiring diabetes mellitus; history of gastritis; history of tubal ligation; history of degenerative joint disease of the knee and the spine; history of depression, alcohol use, smoking and nicotine dependence. The patient has been under the care of Dr. Rizvi, but has not followed up for almost more than a year.. The patient's past medical history is also significant for possible noncompliance and poor compliance, history of uncontrolled diabetes with hemoglobin A1c greater than 11 in the last few years, history of dyslipidemia, history of hypovitaminosis D, history of left knee degenerative joint disease and meniscal injury, history of possible diabetic gastroparesis. PHYSICAL EXAMINATION: The patient was seen in ICU bed 1. VITAL SIGNS: T-max 99.1; heart rate 116, 110, 99, 97, 101; blood pressure 128/83, 145/71, 144/90, 134/85; respirations 23, 20, 19, 20, 21; O2 sat 100% on room air. GENERAL: The patient is seen lying in the bed. The patient is alert, awake, responsive, watching television. The patient appears to be comfortable, does not appear to have any nausea or vomiting. At present, the patient is alert, awake, oriented x3. HEENT: Head examination normocephalic, atraumatic. Dry oral mucosa. NECK: No neck rigidity. CHEST: Kyphosis. LUNG: Shows no rales, crackles or wheezing. CARDIOVASCULAR: S1, S2, tachycardic rhythm. ABDOMEN: Soft. Positive bowel sounds. Questionable mild epigastric tenderness noted. No rebound tenderness noted. No right and left upper quadrant and lower quadrant tenderness noted. No guarding. No rigidity. No costovertebral angle tenderness. GENITALIA: Female. RECTAL: Deferred. EXTREMITIES: Shows no pitting edema, no calf tenderness, no Homans sign. NEUROLOGIC: The patient is alert, awake, oriented x3. Cranial nerves II-XII intact. Gait examination not tested. Neuro examination without any gross deficit. VASCULAR: Palpable pulses. DIAGNOSTICS: Abnormal diagnostics, WBC 12.0, granulocytes 88. VBG shows a pH of 7.24, blood glucose 587, lactate 2.5, bicarb 9.9, CO2 was 11. Chemistry shows sodium 135, potassium 5.4, chloride 101, CO2 of 9, anion gap 30, BUN 16, creatinine 0.6, GFR greater than 60, glucose 564. Bilirubin 1.6. LFTs are normal. Cholesterol 168, triglyceride 87, LDL 76, HDL 82. Urine: pH 6.0, specific gravity 1.020, greater than 1000 glucose, ketone 80, small blood. Influenza A and B negative. Chest x-ray was done in the emergency room, which was negative. EKG shows sinus tachycardia, right axis deviation. The patient was seen in the emergency room by Dr. Menendez. Patient was advised to be admitted. The patient was evaluated by cardiology clinical consultant. The patient was given IV fluid boluses. The patient was given 20 units of subcu IV insulin in the ER. Insulin drip was started. The patient is to be admitted to ICU. IMPRESSION AND PLAN: 1. Acute diabetic ketoacidosis with uncontrolled diabetes mellitus and hyperglycemia. 2. Tachycardia. 3. Hypovolemia. 4. History of hypertension. 5. Increased anion gap metabolic acidosis and lactic acidosis and diabetic ketoacidosis. 6. Leukocytosis with granulocytosis. 7. Respiratory metabolic acidosis. 8. Non-hemolyzed hyperkalemia. 9. Nicotine dependence. 10. Glycosuria. 11. Ketonuria. 12. Sinus tachycardia. 13. Right axis deviation. 14. History of alcohol use. 15. Questionable systemic inflammatory response syndrome. PLAN: At this time, patient has been admitted to ICU for management of DKA. The patient has been ordered thyroid panel, serial CMP, LFTs, magnesium, hemoglobin A1c.. Patient's lipid panel was ordered, which is available, which is reviewed. CMP, LFT, magnesium, phosphorus, thyroid panel ordered for the morning. Beta-hydroxybutyrate, fructosamine hemoglobin A1c has been ordered. Repeat CBC ordered. Blood and urine cultures are ordered. Endocrinology consultation ordered. Procalcitonin level ordered. The patient is on heparin 5000 subcu q.12. The patient is started on Humalog insulin drip. The patient is started on nicotine patch daily. The patient has been started on insulin drip. The patient is on Pepcid 20 IV q. 12, Reglan 5 mg IV a.c. and at bedtime, Zofran 4 mg IV q.6 hours. The patient has been started on consistent carbohydrate diet. The patient has been ordered DVT, GI prophylaxis. The patient has been counseled about cessation of smoking. The patient has been counseled about cessation of alcohol use. The patient has been advised and reinforced about strict diet, medication and physician followup, which the patient acknowledged and understood. The patient has been seen with the ICU resident, Dr. Gannon. Please refer to the detailed H&P of the medical insurance coder. Time spent in the entire management including review of diagnostic data, examination of the patient, discussing the management with the ER attending and the medical insurance coder, time spent is more than 1 hour 55 minutes. Critical care time spent is more than 1 hour 55 minutes. Dictated and electronically signed, not read. Benjamin Ireland MD
[2017-09-26] MEDS: Potassium Chloride 20 MEQ in Sodium Chloride 0.45% 1,000 ML IV SCH ×2 (09:16→16:31)
[2017-09-26] MEDS: Magnesium Oxide 400 mg Tab UD PO SCH ×2 (10:46→18:13)
--- NOTE | 2017-09-26 10:47 | CP.PCM.PN ---
Subjective - Date & Time of Evaluation Date of Evaluation: 09/26/17 Time of Evaluation: 07:05 - Subjective Subjective: Pt seen and examined, reports no major complaints. Objective - Vital Signs/Intake and Output Vital Signs (last 24 hours): Temp Pulse Resp BP Pulse Ox 99.1 F 98 H 20 129/75 100 09/25/17 18:00 09/26/17 08:30 09/26/17 08:30 09/26/17 08:00 09/26/17 08:30 Intake and Output: 09/26/17 09/26/17 06:59 18:59 Intake Total 2175 Output Total 500 Balance 1675 - Medications Medications: Current Medications Famotidine (Pepcid) 20 mg IVP Q12 [facility] Last Admin: 09/26/17 09:23 Dose: 20 mg Heparin Sodium (Porcine) (Heparin) 5,000 units SC Q12 [facility] PRN Reason: Protocol Last Admin: 09/26/17 09:24 Dose: 5,000 units Potassium Chloride 20 meq/ (Sodium Chloride) 1,010 mls @ 125 mls/hr IV .Q8H5M [facility] Last Admin: 09/26/17 09:16 Dose: 125 mls/hr Insulin Detemir (Levemir) 24 unit SC HS [facility] Insulin Human Lispro (Humalog Low) 0 units SC ACHS [facility] PRN Reason: Protocol Last Admin: 09/26/17 07:47 Dose: Not Given Insulin Human Lispro (Humalog) 12 units SC ACTID [facility] Last Admin: 09/26/17 07:47 Dose: Not Given Magnesium Oxide (Mag-Ox) 400 mg PO BID [facility] Metoclopramide HCl (Reglan) 5 mg IVP ACHS [facility] Last Admin: 09/26/17 07:55 Dose: 5 mg Nicotine (Nicoderm Cq) 1 patch TD DAILY [facility] Last Admin: 09/26/17 09:22 Dose: 1 patch Ondansetron HCl (Zofran Inj) 4 mg IVP Q6H PRN PRN Reason: Nausea/Vomiting - Labs Labs: 09/26/17 05:30 09/26/17 05:30 APTT 26.2 Seconds (25.1-36.5) 09/26/17 05:30 - Constitutional Appears: Non-toxic, No Acute Distress - Eye Exam Eye Exam: Normal appearance - ENT Exam ENT Exam: Mucous Membranes Moist - Respiratory Exam Respiratory Exam: Clear to Ausculation Bilateral, NORMAL BREATHING PATTERN - Cardiovascular Exam Cardiovascular Exam: REGULAR RHYTHM, +S1, +S2 - GI/Abdominal Exam GI & Abdominal Exam: Soft, Normal Bowel Sounds - Extremities Exam Extremities Exam: Normal Inspection - Neurological Exam Neurological Exam: Awake, Oriented x3 Assessment and Plan - Assessment and Plan (Free Text) Assessment: Patient is 47yo female with PMHx of IDDM, on insulin pump, presents with elevated FS readings at home, and NBNB vomiting In the ER found to have AG acidosis with DKA, placed on insulin drip, and given IVF bolus. Now off insulin drip, AG has closed, given diet, tolerated well. Afebrile, HD stable, comfortable. DKA, resolved Dehydration IDDM Cough Recommend: - supp o2 as needed - follow up cultures - BP control - diabetic diet - IVF - Insulin sliding scale, Levemir - check HgbA1C - Endo follow up - Check lipid panel - Keep insulin pump off for now - GI ppx - DVT ppx - stable, transfer to floor
--- NOTE | 2017-09-26 15:00 | PN ---
DATE: 09/26/2017 SUBJECTIVE: The patient is seen lying in the bed in ICU bed 1. Overnight nurse's notes were reviewed. The patient was found to be alert, awake, oriented x3. No adverse events documented. The patient does not report any nausea, denies any vomiting, denies any diarrhea, denies any abdominal pain, denies any hemoptysis. OBJECTIVE: VITAL SIGNS: T-max 99.1. Telemetry shows heart rate is 98, 91, 100, 87. Blood pressure 136/69, 129/75, 134/59, 125/66, 127/77. Respirations 18-20, and O2 sat 98-100%. HEENT: Head examination normocephalic, atraumatic. HEENT examination shows pinkish conjunctivae. Dry oral mucosa. NECK: No neck rigidity. CHEST: Kyphosis. LUNGS: Shows no rales, crackles or wheezing. CARDIOVASCULAR: S1, S2, regular rhythm. No appreciable murmur, gallop or rub. ABDOMEN: Abdomen is soft. Positive bowel sound. No epigastric, periumbilical tenderness noted. No right and left upper and lower quadrant tenderness noted. No hepatosplenomegaly noted. No costovertebral angle tenderness. GENITALIA: Female. RECTAL: Deferred. EXTREMITIES: Shows no pitting edema, no calf numbness, no Amadou's signs. Body mass index is 29.7. NEURO: Cranial nerves II-XII intact and limited. Gait examination is not tested. PSYCHIATRIC: Examination is negative. DIAGNOSTICS: On 09/26/2017; WBC count is down to 6.2 from 12.0, hemoglobin/hematocrit 11.4/35.7, platelet 221. Granulocytes 55%. Repeat VBG shows a lactate of 1.8. Sodium 139, potassium 3.5, chloride 111, CO2 of 19, anion gap 13, BUN 11, creatinine 0.5, GFR greater than 60. The patient's fingerstick has dropped to 49, 105, 137, 157, 181 and 239. Random glucose 81, calcium 8.7, phosphorus 2.8, magnesium 1.6. LFTs are normal. Magnesium 1.6. LFTs are normal. Beta hCG was negative. TSH and T4 are within normal limit. Fructosamine is 569, hemoglobin A1c 11.4, which is consistently elevated. Chest x-ray report was reviewed. IMPRESSION: 1. Diabetic ketoacidosis with dehydration and spurious hyperkalemia. 2. Hypovolemia and dehydration. 3. Tachycardia. 4. Possible noncompliance. 5. Leukocytosis with granulocytosis. 6. Normocytic anemia. 7. Lactic acidosis. 8. Increased anion gap, metabolic acidosis, and diabetic ketoacidosis and lactic acidosis. 9. Status post hyperkalemia. 10. Uncontrolled insulin-requiring diabetes mellitus with hyperglycemia and hemoglobin A1c of 11.4 and fructosamine of 570. 11. Hypokalemia. 12. Hypomagnesemia. 13. Nicotine dependence. 14. Microscopic hematuria. 15. Sinus tachycardia. 16. Right axis deviation. PLAN: At this time, the patient is off the insulin drip. The patient has been ordered serial labs. The patient's blood and urine cultures reports are pending. The patient is on half normal saline with 20 mEq of KCl at 125 mL an hour. The patient was given some heparin 5000 subcu q.12 hours, the patient is on Humalog 12 units three times a day with meals and Humalog low-dose sliding scale coverage a.c. and at bedtime. The patient is on Levemir 24 units subcu at bedtime, magnesium oxide 400 mg twice a day. The patient was given magnesium sulfate riders 2 g x1, nicotine patch 21 mg daily, Pepcid 20 mg IV q.12 hours, Reglan 5 mg IV a.c. and at bedtime, Zofran 4 mg IV q.6 hours. The patient is on consistent carbohydrate diet. The patient has been ordered a cosmetology educator evaluation. The patient has been ordered out of bed, [facility] denis stocksandra. At present, the patient will be transferred out of the ICU. The patient will be monitored very closely for her glycemic control and the patient will be possibly considered for discharge very soon if the patient's diabetic control is stabilized. The patient has been updated about her condition, diagnosis, test results, recommendation. The patient was advised strict dietary and medication compliance, which she acknowledged understand. Time spent in the entire management is more than 35 minutes. Dictated and electronically signed, not read. Benjamin Ireland MD [facility] # [id number]
[2017-09-26 16:21] VITALS: O2SAT 99
--- NOTE | 2017-09-26 19:17 | PN ---
DATE: ENDOCRINOLOGY FOLLOWUP NOTE LOCATION: ICU 128, room 1. SUBJECTIVE: This is a 47-year-old female with recent uncontrolled type 1 insulin-dependent diabetes presenting here with diabetic ketoacidosis and dehydration and a possible malfunction of her insulin pump as noted and is being followed closely for metabolic management. She developed overnight fasting hypoglycemia as noted and will be started on meals today as given. Her latest glucose levels have ranged from 115 to 247 mg/dL. Her latest chemistry showed a BUN of 11, sodium 139, potassium 3.5, chloride 111, CO2 of 19, glucose 81 and creatinine 0.5. Her thyroid studies are normal as noted. Her A1c level is pending at this time and so for now, we will modify once again her basal and bolus insulin regimen and lower the Humalog to 6 units subcu t.i.d. before meals to start today as ordered. We will also lower the basal insulin with Levemir to be given as 18 units subcu at bedtime daily to start tonight. We will modify the low dose correction scale using Humalog insulin as given. We will also consult a diabetic nurse educator and dietitian for proper followup of the use of her insulin pump. We will also contact the [employer] insulin pump company regarding checking her current insulin pump for any possible malfunctions before we start her back on the aforementioned. We will obtain serial chemistries and continue the IV hydration with potassium supplementation as given. We will follow. Shannan Gipson MD
[2017-09-26] MEDS ORDERED: Insulin Detemir 100 units/ml Vial (Levemir) SC SCH ×2 (22:00)
[2017-09-27 00:50] VITALS: RESP 20
[2017-09-27] MEDS: Potassium Chloride 20 MEQ in Sodium Chloride 0.45% 1,000 ML IV SCH ×3 (02:49→12:24)
[2017-09-27 07:42] LABS: BASO # 0.03 K/mm3 (0.0-2.0); BASO % 0.6 % (0.0-3.0); EOS # 0.1 (0.0-0.7); EOS % 2.5 % (1.5-5.0); GRAN # 2.71 (1.4-6.5); GRAN % 56.9 % (50.0-68.0); HEMOGLOBIN 11.8 g/dL (12.0-16.0); LYMPH # 1.5 (1.2-3.4); MEAN CELL VOLUME 83.6 fl (80.0-105.0); MEAN CORPUSCULAR HEMOGLOBIN 27.2 pg (25.0-35.0); MEAN CORPUSCULAR HGB CONC 32.5 g/dl (31.0-37.0); MEAN PLATELET VOLUME 10.1 fl (7.0-11.0); MONO # 0.4 (0.1-0.6); RBC 4.34 10^6/uL (3.5-6.1); RED CELL DISTRIBUTION WIDTH 12.9 % (11.5-14.5); WHITE BLOOD COUNT 4.8 10^3/ul (4.5-11.0)
[2017-09-27 08:01] LABS: ALB/GLOB RATIO 1.3 (1.1-1.8); ALBUMIN 3.2 g/dL (3.0-4.8); ALT/SGPT 24 U/L (7-56); AST/SGOT 21 U/L (14-36); BILIRUBIN,DIRECT 0.4 mg/dL (0.0-0.4); BLOOD UREA NITROGEN 4 mg/dL (7-21); CALCIUM 8.4 mg/dL (8.4-10.5); GFR AFRICAN-AMERICAN > 60; GFR NON-AFRICAN AMERICAN > 60; MAGNESIUM 1.8 mg/dL (1.7-2.2)
[2017-09-27 08:32] VITALS: BP 121/67; PULSE 78; TEMP 98.4
[2017-09-27] MEDS: Insulin Lispro 1 UNITS/0.01 ML SC SCH ×2 (08:51→12:22)
[2017-09-27] MEDS: Insulin Lispro (humaLOG) LOW Coverage SC SCH ×2 (08:52→11:56)
[2017-09-27] MEDS: Magnesium Oxide 400 mg Tab UD PO SCH (09:22)
--- NOTE | 2017-09-27 10:07 | CP.PCM.PN ---
Subjective - Date & Time of Evaluation Date of Evaluation: 09/27/17 Time of Evaluation: 07:30 - Subjective Subjective: IM Progress Note for Dr. Ireland Service Pt seen and examined at bedside on floors. No acute events overnight, no further reported episodes of hypoglycemia. No acute complaints this AM, denies nausea, emesis, fevers, chills, lightheadedness, dizziness, chest pain, or shortness of breath. Urinating at normal frequency as per pt. Objective - Vital Signs/Intake and Output Vital Signs (last 24 hours): Temp Pulse Resp BP Pulse Ox 98.4 F 78 20 121/67 99 09/27/17 07:00 09/27/17 07:00 09/27/17 07:00 09/27/17 07:00 09/27/17 07:00 Intake and Output: 09/27/17 09/27/17 06:59 18:59 Intake Total 2280 Balance 2280 - Medications Medications: Current Medications Acetaminophen (Tylenol 325mg Tab) 650 mg PO Q6H PRN PRN Reason: Pain, severe (8-10) Last Admin: 09/27/17 04:29 Dose: 650 mg Famotidine (Pepcid) 20 mg IVP Q12 [facility] Last Admin: 09/27/17 09:19 Dose: 20 mg Heparin Sodium (Porcine) (Heparin) 5,000 units SC Q12 [facility] PRN Reason: Protocol Last Admin: 09/27/17 09:20 Dose: 5,000 units Potassium Chloride 20 meq/ (Sodium Chloride) 1,010 mls @ 125 mls/hr IV .Q8H5M [facility] Last Admin: 09/27/17 08:05 Dose: Not Given Insulin Detemir (Levemir) 18 unit SC HS [facility] Last Admin: 09/26/17 21:49 Dose: 18 unit Insulin Human Lispro (Humalog Low) 0 units SC ACHS [facility] PRN Reason: Protocol Last Admin: 09/27/17 08:52 Dose: Not Given Insulin Human Lispro (Humalog) 6 units SC ACTID [facility] Last Admin: 09/27/17 08:51 Dose: Not Given Magnesium Oxide (Mag-Ox) 400 mg PO BID [facility] Last Admin: 09/27/17 09:22 Dose: 400 mg Metoclopramide HCl (Reglan) 5 mg IVP ACHS [facility] Last Admin: 09/27/17 09:20 Dose: Not Given Nicotine (Nicoderm Cq) 1 patch TD DAILY [facility] Last Admin: 09/27/17 09:24 Dose: 1 patch Ondansetron HCl (Zofran Inj) 4 mg IVP Q6H PRN PRN Reason: Nausea/Vomiting - Labs Labs: 09/27/17 07:20 09/27/17 07:25 APTT 26.2 Seconds (25.1-36.5) 09/26/17 05:30 - Additional Findings Additional findings: - Constitutional Appears: Non-toxic, No Acute Distress - Head Exam Head Exam: ATRAUMATIC, NORMAL INSPECTION, NORMOCEPHALIC - Eye Exam Eye Exam: EOMI, Normal appearance. absent: Conjunctival injection, Scleral icterus Pupil Exam: absent: Irregular, Unequal - ENT Exam ENT Exam: Mucous Membranes Moist - Neck Exam Neck Exam: Full ROM, Normal Inspection - Respiratory Exam Respiratory Exam: Clear to Ausculation Bilateral, NORMAL BREATHING PATTERN. absent: Accessory Muscle Use, Chest Wall Tenderness, Decreased Breath Sounds, Rales, Rhonchi, Wheezes - Cardiovascular Exam Cardiovascular Exam: REGULAR RHYTHM, RRR, +S1, +S2. absent: Bradycardia, Tachycardia, Irregular Rhythm, +S4 - GI/Abdominal Exam GI & Abdominal Exam: Soft, Normal Bowel Sounds. absent: Distended, Firm, Guarding, Rigid, Tenderness - Extremities Exam Extremities Exam: Normal Capillary Refill, Normal Inspection. absent: Calf Tenderness, Pedal Edema, Tenderness - Neurological Exam Neurological Exam: Alert, Awake, Oriented x3 moving all extremities spontaneously, motor grossly intact and equal bilaterally - Psychiatric Exam Psychiatric exam: Normal Affect, Normal Mood - Skin Skin Exam: Dry, Intact, Normal Color, Warm Assessment and Plan - Assessment and Plan (Free Text) Assessment: This is a 47 yo F with PMH of IDDM on insulin pump presenting with DKA, concerning for pump malfunction, which she has experienced in the past. She was admitted for DKA, which is now resolved, and is pending director of therapy services eval of her insulin pump and new regimen as per Endo prior to discharge. Plan: 1) DKA - resolved -pump malfunction vs dietary non-compliance -A1c 11.4 -regimen adjusted by Endo, currently on Levemir 18 units nightly, lispro 6 units with meals, low dose lispro sliding scale -Endo (Dr. Gipson) consulted, appreciate all recs -Pending eval of pump by director of therapy services as per Endo -continue NS 125 cc/hr + 20 mEq KCl per bag -thyroid panel wnl, lipid panel reviewed -family living educator consulted 2) Leukocytosis - resolved -likely reactive to DKA, now 6.2, afebrile -procal wnl, UA not indicative of infectious process, negative for influenza -blood cx negative at 24 hrs, urine cx pending 3) Electrolyte abnormalities - improved -K improved from 3.5 to 3.6, continue 20 mEq KCl per 1L bag NS -Mag increased from 1.6 to 1.8, started on PO Mag-ox BID Dispo: Med/Surg, pending eval by Insulin pump director of therapy services and family living educator , then discharge to home FEN: Consistent Carb, NS 125 cc/hr + 20 mEq KCl Access: Peripheral IV Consults: Endo Ppx: Protonix for GI, Heparin for DVT Patient seen, reviewed, and discussed with attending, Dr. Ireland.
--- NOTE | 2017-09-27 23:29 | PN ---
DATE: ENDOCRINOLOGY FOLLOWUP NOTE LOCATION: Transferred from ICU, in the room 576. SUBJECTIVE: This is a 47-year-old female with recent uncontrolled type 1 insulin-dependent diabetes, presenting here with diabetic ketoacidosis and dehydration and since then improved clinically and metabolically as noted thereof. Her glucose values are arranging to be from 136 to 235 mg/dL. She had a low normal glycemic level overnight with a fasting glucose of 54 mg/dL. Her latest chemistry showed a BUN of 4, sodium 142, potassium 3.6, chloride 110, CO2 22, glucose 56 and creatinine 0.4. So at this time, we will actually not be giving the patient her basal and bolus insulin regimen, which was given for inpatient diabetic management. She was currently on Humalog given as 6 units t.i.d. and Levemir at 18 units at bedtime. She will be allowed to resume the use of her [employer] insulin pump upon discharge home today as noted. We gave the number of the [employer] pump specialist, Ms. Eve Mascorro, so the patient can call in to have her pump checked for any kind of malfunctioning as noted otherwise. I also personally called the pump specialist, Ms. Eve Mascorro, regarding the aforementioned need to check the patient's pump accordingly. She will follow up with her medical doctor for outpatient diabetic and medical management thereof. We will follow. Shannan Gipson MD
--- NOTE | 2017-09-28 07:44 | DS ---
FINAL PROGRESS NOTE AND DISCHARGE SUMMARY LOCATION: Patient is seen in room 576, bed 1. Patient is out of bed to chair. Patient is alert, awake, responsive. Overnight nurse's notes were reviewed. Patient offered no specific complaints. Patient slept well overnight. Patient's fingerstick blood sugar this morning 136. PHYSICAL EXAMINATION VITAL SIGNS: T-max 98.6; pulse 78, 88, 80; blood pressure is 121/67, 127/82, 134/67, 130/80; respirations 20; O2 saturation 99%. Body mass index is 31. HEENT: Patient's head examination normocephalic, atraumatic. HEENT examination shows pinkish conjunctivae. Anicteric sclerae. No oropharyngeal lesion. NECK: No neck rigidity. No audible carotid bruit. No visible jugular venous distention. CHEST: Kyphosis. LUNGS: Shows no rales, crackles or wheezing. CARDIOVASCULAR: S1, S2. Regular rhythm. No audible murmur, gallop or rub. ABDOMEN: Soft. Positive bowel sounds. No hepatosplenomegaly noted. No guarding. No rigidity. No rebound tenderness. GENITALIA: Female. RECTAL: Examination is deferred. EXTREMITIES: Show no pitting edema, no calf tenderness, no Homans' sign. NEUROLOGIC: Patient is alert, awake and oriented x3. Cranial nerves II through XII grossly intact. Gait examination is independent. VASCULAR: Palpable pulses. MUSCULOSKELETAL: Body mass index 31. DIAGNOSTICS: September 27, WBC 4.8, hemoglobin/hematocrit 11.8/36.3, platelet 184,000. Sodium 142, potassium 3.6, chloride 110, CO2 22, anion gap 13, BUN 4, creatinine 0.4, GFR greater than 60. Glucose of 235, 136, 151, 191. Calcium 8.4, phosphorus 3.1, magnesium 1.1 and 1.8. LFTs are normal. TSH is 3.86. Beta hCG is negative. Influenza A and B is negative. Blood cultures are negative. Chest x-ray negative. EKG, sinus tachycardia from admission, right axis deviation. Patient seen by principal associate, recommendations noted. Patient's discharge management discussed with the principal associate, Dr. Shannan Gipson. FINAL IMPRESSION, PLAN AND DISCHARGE DIAGNOSES 1. Uncontrolled type 1 insulin-requiring diabetes mellitus with severe hyperglycemia, status post diabetic ketoacidosis probably secondary to insulin pump malfunction versus severe dietary noncompliance, dehydration, hemoglobin A1c of 11.4, fructosamine of greater than 550 and possible insulin pump malfunction versus dietary noncompliance. 2. History of hypertension. 3. Leukocytosis with granulocytosis. 4. Normocytic anemia. 5. Lactic acidosis. 6. Non-hemolyzed hyperkalemia and spurious hyperkalemia. 7. Hypomagnesemia. 8. Hypokalemia. 9. Glycosuria, microscopic hematuria. 10. Status post sinus tachycardia. 11. Right axis deviation. PLAN: At this time, the patient is awaiting further recommendations by Endocrinology. Patient can be discharged after cleared by Endocrinology and after insulin pump malfunction, resolved by [employer] patient care representative. Discharge clearance as per principal associate is to call the local [employer] patient care representative for the [facility] and to have the insulin pump assessed. Patient was advised by the Endocrinology to resume the use of insulin pump. Patient was advised strict moderate carbohydrate diet. Patient is to be discharged home. Discharge followup with Dr. Misha Rizvi and Dr. Eduardo. DISCHARGE MEDICATIONS: 1. Patient is to resume her insulin pump. 2. Patient is to resume her Claritin 10 mg daily. 3. Magnesium oxide 400 mg twice a day. 4. Nicotine patch 21 mg daily. 5. NovoLog insulin pump. 6. Voltaren 75 twice a day. 7. Zestril 10 mg daily. Currently, patient is on following medications at present: 1. Patient is on half-normal saline with KCl 20 mEq at 125 mL an hour. 2. Patient is on heparin 5000 subcu q.12 hours. 3. Humalog 6 units before meals meals three times a day. 4. Humalog low dose sliding scale coverage before meals and at bedtime. 5. Levemir 18 units at bedtime. 6. Magnesium oxide 400 mg twice a day. 7. Nicotine patch 21 mg daily. 8. Pepcid 20 mg twice a day. 9. Reglan 5 mg p.o. before meals and at bedtime. 10. Tylenol 650 q. 6 p.r.n. 11. Zofran 4 mg IV q. 6 p.r.n. Patient is on consistent carbohydrate diet. The patient is to be discharged today as cleared by the principal associate with outpatient followup. Patient was counseled about strict dietary and medication compliance. During this hospitalization, patient extensively was explained about her diagnosis, test results, recommendation by all the physician involved in the care of the patient, which she acknowledged to understand. Patient was advised of the risk and consequences of uncontrolled diabetes mellitus including loss of vision, renal failure and loss of limbs, which she acknowledged to understand. All questions concerned answered. Time spent in the entire discharge process more than 45 minutes. Dictated and electronically signed, not read. Benjamin Ireland MD
== END 2017-09-27 13:55 | disposition home or self-care (01) | DRG 638 ==
LOC: ED 11:31 → ERH 14:52 → ICU 17:20 → 5RSO 09-26 17:44
PROVIDERS: ADMIT Internal Medicine; ATTEND Internal Medicine
DX: E10.10 Type 1 diabetes mellitus with ketoacidosis without coma (principal); T85.694A Other mechanical complication of insulin pump, initial encounter; E83.42 Hypomagnesemia; E87.5 Hyperkalemia; E86.0 Dehydration; I10 Essential (primary) hypertension; E87.6 Hypokalemia; D64.9 Anemia, unspecified; F17.210 Nicotine dependence, cigarettes, uncomplicated; D72.829 Elevated white blood cell count, unspecified; R31.29 Other microscopic hematuria; R00.0 Tachycardia, unspecified; Z91.11 Patient's noncompliance with dietary regimen; Z79.4 Long term (current) use of insulin

== ENCOUNTER 2018-02-27 15:29 | Emergency (ER) | payer OTHER ==
[2018-02-27] MEDS ORDERED: Sodium Chloride 0.9% 1,000 ML IV STA ×2 (15:58→17:40)
[2018-02-27] MEDS ORDERED: Insulin Regular 1 UNITS/0.01 ML ML IVP STA (15:58)
[2018-02-27 15:59] VITALS: BMI 29.8
[2018-02-27 16:01] VITALS: TEMP 98.4
--- NOTE | 2018-02-27 16:35 | ED PDOC ---
Arrival/HPI - General Historian: Patient - General Chief Complaint: High Blood Sugar Time Seen by Provider: 02/27/18 15:55 - History of Present Illness Narrative History of Present Illness (Text): 02/27/18 16:27 47yo female with pmhx of IDDM present with complaint of nausea, bodyaches, dry mouth since this afternoon. States she forgot her Novolog at home, skipped it and started having the above symptoms. Notes that she took the insulin at 1500, but was still symptomatic so she came to ED. She denies dizziness, abdominal pain, diarrhea, chest pain, SOB, diaphoresis, urinary symptoms, fever, chills, headache, any other complaint. (Shayy Cordova) Past Medical History - Provider Review Nursing Documentation Reviewed: Yes - Infectious Disease Hx of Infectious Diseases: None - Tetanus Immunization Tetanus Immunization: Unknown, >10 years Ago - Cardiac Hx Cardiac Disorders: Yes Hx Hypertension: Yes - Pulmonary Hx Respiratory Disorders: Yes (smokes 5-6 cig a day.) Hx Bronchitis: Yes Other/Comment: infulenza h/o - Neurological Hx Neurological Disorder: No - HEENT Hx HEENT Disorder: No - Renal Hx Renal Disorder: No - Endocrine/Metabolic Hx Endocrine Disorders: Yes (dka 2012, 2-18) Hx Diabetes Mellitus Type 1: Yes (dx 1999) - Hematological/Oncological Hx Blood Disorders: No - Integumentary Hx Dermatological Disorder: No - Musculoskeletal/Rheumatological Hx Musculoskeletal Disorders: Yes Hx Arthritis: Yes (right knee lower back) - Gastrointestinal Hx Gastrointestinal Disorders: Yes Hx Gastritis: Yes - Genitourinary/Gynecological Hx Genitourinary Disorders: Yes (tubal ligation) - Psychiatric Hx Psychophysiologic Disorder: Yes Hx Depression: Yes Hx Substance Use: No - Past Surgical History Past Surgical History: No Previous - Surgical History Hx Tubal Ligation: Yes - Anesthesia Hx Anesthesia: Yes Hx Anesthesia Reactions: Yes (Vomiting) Hx Malignant Hyperthermia: No - Suicidal Assessment Feels Threatened In Home Enviroment: No Family/Social History - Physician Review Nursing Documentation Reviewed: Yes Family/Social History: Unknown Family HX Smoking Status: Current Some Days Smoker Hx Alcohol Use: Yes Hx Substance Use: No Hx Substance Use Treatment: No Allergies/Home Meds Allergies/Adverse Reactions: Allergies No Known Allergies Allergy (Verified 02/27/18 15:52) Home Medications: Home Meds Medication Instructions Recorded Confirmed Insulin Aspart, Recombinant 10 units SC BID 02/27/18 02/27/18 [Novolog] Insulin Detemir [Levemir] 5 units SC DAILY 02/27/18 02/27/18 Review of Systems - Physician Review All systems were reviewed & negative as marked: Yes - Review of Systems Constitutional: Fatigue Eyes: Normal ENT: Normal Respiratory: Normal Cardiovascular: Normal Gastrointestinal: Nausea. absent: Abdominal Pain, Constipation, Diarrhea, Vomiting, Hematochezia, Hematemesis Genitourinary Female: Normal Musculoskeletal: Normal Skin: Normal Neurological: Normal Endocrine: Normal Hemo/Lymphatic: Normal Psychiatric: Normal Physical Exam Vital Signs Reviewed: Yes Temperature: Afebrile Blood Pressure: Normal Pulse: Tachycardic Respiratory Rate: Normal Appearance: Positive for: Well-Appearing, Non-Toxic, Comfortable Pain Distress: None Mental Status: Positive for: Alert and Oriented X 3 Finger Stick Blood Glucose: 500 - Systems Exam Head: Present: Atraumatic, Normocephalic Pupils: Present: PERRL Extroacular Muscles: Present: EOMI Conjunctiva: Present: Normal Mouth: Present: Moist Mucous Membranes Neck: Present: Normal Range of Motion Respiratory/Chest: Present: Clear to Auscultation, Good Air Exchange. No: Respiratory Distress, Accessory Muscle Use Cardiovascular: Present: Regular Rate and Rhythm, Normal S1, S2. No: Murmurs Abdomen: No: Tenderness, Distention, Peritoneal Signs Back: Present: Normal Inspection Upper Extremity: Present: Normal Inspection. No: Cyanosis, Edema Lower Extremity: Present: Normal Inspection. No: Edema Neurological: Present: GCS=15, CN II-XII Intact, Speech Normal Skin: Present: Warm, Dry, Normal Color. No: Rashes Psychiatric: Present: Alert, Oriented x 3, Normal Insight, Normal Concentration Vital Signs Temp Pulse Resp BP Pulse Ox 02/27/18 19:33 100 H 16 142/86 100 02/27/18 15:29 98.4 F 109 H 19 136/73 97 Medical Decision Making ED Course and Treatment: 02/27/18 19:36 47yo female present with complaint of generalized bodyache, nausea, dry mouth and elevated BS . FS greater than 500 was noted. Lab was ordered 12units of insulin and IL of NS was ordered On re evaluation her BS was 264 with AG and low bicarb. Plan was to admit pt for DKA and hyperglycemia. Result and plan was DW the pt and she declined admission. She states "I have to go to work tomorrow". The risk of , disability associated with signing out AMA was DW the pt and she insisted on signing out AMA. She have the mental capacity of making this decision. She was AAO x3. She was strongly advised to continue checking her BS and return to ED promptly anytime she changes her mind. She was advised to other miller f/u with her PMD and take her medication as was directed. (Tasha,Shayy A) 02/27/18 22:28 Patient seen and evaluated with PA. On exam, she reports nausea. Denies headache or chest pain or shortness of breath. She states she did not take insulin today. Labs consistent with DKA. I have discussed this diagnosis, abnormal labs and need for admission with patient in laymen's terms with witness present. She is alert, oriented, and able to repeat back diagnosis and repeat back risks or signing out against medical advice. I have stressed to her critical nature of her diagnosis and lab findings, NEED for admission, iv hydration, insulin, serial exams. I have reviewed with her HIGH risk of worsening of symptoms including but not limited to fatal heart rhythm, cardiovascular collapse, sepsis, dehydration, she expresses understanding of this and states she "can't miss work tomorrow". I have repeated multiple times recommendation for admission and icu evaluation, she refuses further treatment or admission and expresses understanding of risk. (Scout Salmeron) - Lab Interpretations Lab Results: 02/27/18 16:23 02/27/18 16:23 Lab Results 02/27/18 19:23: POC Glucose (mg/dL) 213 H 02/27/18 17:35: pCO2 25 L, pO2 101.0 H, HCO3 13.2 L, ABG pH 7.33 L, ABG Total CO2 14.0 L, ABG O2 Saturation 98.0, ABG O2 Content 16.3, ABG Base Excess -11.1 L , ABG Hemoglobin 12.0, ABG Carboxyhemoglobin 0.8, POC ABG HHb (Measured) 2.0, ABG Methemoglobin 1.2, ABG O2 Capacity 16.6, Hgb O2 Saturation 96.0, FiO2 21.0 02/27/18 17:29: Urine Opiates Screen Negative, Urine Methadone Screen Negative, Ur Barbiturates Screen Negative, Ur Phencyclidine Scrn Negative, Ur Amphetamines Screen Negative, U Benzodiazepines Scrn Negative, U Oth Cocaine Metabols Negative, U Cannabinoids Screen Negative 02/27/18 17:27: POC Glucose (mg/dL) 294 H 02/27/18 16:30: POC Glucose (mg/dL) 442 H* 02/27/18 16:23: Sodium 136, Potassium 4.7, Chloride 100, Carbon Dioxide 13 L, Anion Gap 28 H, BUN 12, Creatinine 0.6 L, Est GFR ( Amer) > 60, Est GFR ( Non-Af Amer) > 60, Random Glucose 564 H* D, Calcium 9.0, Magnesium 1.7, Total Bilirubin 0.8, AST 20, ALT 24, Alkaline Phosphatase 124, Lactate Dehydrogenase 439, Total Creatine Kinase 102, Troponin I < 0.01, Total Protein 6.9, Albumin 4.3, Globulin 2.6, Albumin/Globulin Ratio 1.6 02/27/18 16:23: Urine Color Light red, Urine Appearance Sl cloudy, Urine pH 5.5 , Ur Specific [place] 1.020, Urine Protein 30 H, Urine Glucose (UA) >=1000, Urine Ketones >=80, Urine Blood Large H, Urine Nitrate Negative, Urine Bilirubin Negative, Urine Urobilinogen 0.2, Ur Leukocyte Esterase Trace H, Urine RBC Tntc, Urine WBC 0 - 2, Ur Epithelial Cells None, Urine Bacteria Neg 02/27/18 16:23: PT 10.5, INR 0.92 L, APTT 26.6 02/27/18 16:23: WBC 6.3 D, RBC 4.65, Hgb 13.2, Hct 39.8, MCV 85.6, MCH 28.4, MCHC 33.2, RDW 12.9, Plt Count 254, MPV 10.1, Gran % 81.9 H, Lymph % (Auto) 13.2 L, Yell % (Auto) 3.8, Eos % (Auto) 0.8 L, Baso % (Auto) 0.3, Gran # 5.14, Lymph # (Auto) 0.8 L, Yell # (Auto) 0.2, Eos # (Auto) 0.1, Baso # (Auto) 0.02 07/10/18 15:52: POC Glucose (mg/dL) > 500 H* - Medication Orders Current Medication Orders: Discontinued Medications Sodium Chloride (Sodium Chloride 0.9%) 1,000 mls @ 999 mls/hr IV .Q1H1M STA Stop: 02/27/18 16:58 Last Admin: 02/27/18 16:39 Dose: 999 mls/hr eMAR Start Stop Document 02/27/18 16:39 MR (Rec: 02/27/18 16:39 MR [id number]) Intravenous Solution Start Date 02/27/18 Start Time 16:39 End Date 02/27/18 End time 17:39 Total Infusion Time 60 Sodium Chloride (Sodium Chloride 0.9%) 1,000 mls @ 999 mls/hr IV .Q1H1M STA Stop: 02/27/18 18:40 Last Admin: 02/27/18 17:51 Dose: 999 mls/hr eMAR Start Stop Document 02/27/18 17:51 MR (Rec: 02/27/18 17:52 MR [id number]) Intravenous Solution Start Date 02/27/18 Start Time 17:51 End Date 02/27/18 End time 18:51 Total Infusion Time 60 Insulin Human Regular (Humulin R) 12 units IVP ONCE STA Stop: 02/27/18 15:59 Last Admin: 02/27/18 16:38 Dose: 12 u MAR Blood Glucose Document 02/27/18 16:38 MR (Rec: 02/27/18 16:37 MR [id number]) Blood Glucose Finger Stick Blood Glucose (70-120) 500 IVP Administration Document 02/27/18 16:38 MR (Rec: 02/27/18 16:37 MR [id number]) Charges for Administration # of IVP Administrations 1 Ondansetron HCl (Zofran Inj) 4 mg IVP STAT STA Stop: 02/27/18 16:11 Last Admin: 02/27/18 16:37 Dose: 4 mg IVP Administration Document 02/27/18 16:37 MR (Rec: 02/27/18 16:37 MR [id number]) Charges for Administration # of IVP Administrations 1 Disposition/Present on Arrival - Present on Arrival Any Indicators Present on Arrival: No History of DVT/PE: No History of Uncontrolled Diabetes: Yes Urinary Catheter: No History of Decub. Ulcer: No History Surgical Site Infection Following: None - Disposition Have Diagnosis and Disposition been Completed?: Yes Disposition Time: 19:30 - Disposition Diagnosis: Diabetic ketoacidosis associated with type 1 diabetes mellitus, Hyperglycemia Disposition: AGAINST MEDICAL ADVICE Condition: FAIR Referrals: Misha Rizvi JD, MD [Primary Care Provider] - Follow up with primary Forms: [employer] (E[place]ian)
[2018-02-27 16:52] LABS: PH,URINE 5.5 (4.7-8.0); URINE BILIRUBIN NEGATIVE (NEGATIVE); URINE BLOOD LARGE (NEGATIVE); URINE GLUCOSE (UA) >=1000 mg/dL (NEGATIVE); URINE LEUKOCYTE ESTERASE TRACE Leu/uL (NEGATIVE); URINE PROTEIN 30 mg/dL (<30 mg/dL); URINE UROBILINOGEN 0.2 E.U./dL (<1 E.U./dL)
[2018-02-27 16:54] LABS: URINE APPEARANCE SL CLOUDY (CLEAR); URINE COLOR LIGHT RED (YELLOW)
[2018-02-27 16:55] LABS: BASO # 0.02 K/mm3 (0.0-2.0); BASO % 0.3 % (0.0-3.0); EOS # 0.1 (0.0-0.7); EOS % 0.8 % (1.5-5.0); GRAN # 5.14 (1.4-6.5); GRAN % 81.9 % (50.0-68.0); HEMOGLOBIN 13.2 g/dL (12.0-16.0); INR 0.92 (0.93-1.08); LYMPH # 0.8 (1.2-3.4); LYMPH % 13.2 % (22.0-35.0); MEAN CELL VOLUME 85.6 fl (80.0-105.0); MEAN CORPUSCULAR HEMOGLOBIN 28.4 pg (25.0-35.0); MEAN CORPUSCULAR HGB CONC 33.2 g/dl (31.0-37.0); MEAN PLATELET VOLUME 10.1 fl (7.0-11.0); MONO # 0.2 (0.1-0.6); MONO % 3.8 % (1.0-6.0); PARTIAL THROMBOPLASTIN TIME 26.6 Seconds (25.1-36.5); PROTHROMBIN TIME 10.5 SECONDS (9.4-12.5); RBC 4.65 10^6/uL (3.5-6.1); RED CELL DISTRIBUTION WIDTH 12.9 % (11.5-14.5); WHITE BLOOD COUNT 6.3 10^3/ul (4.5-11.0)
[2018-02-27 17:01] LABS: ALB/GLOB RATIO 1.6 (1.1-1.8); ALBUMIN 4.3 g/dL (3.0-4.8); ALT/SGPT 24 U/L (7-56); AST/SGOT 20 U/L (14-36); BLOOD UREA NITROGEN 12 mg/dL (7-21); GFR AFRICAN-AMERICAN > 60; GFR NON-AFRICAN AMERICAN > 60
[2018-02-27 17:09] LABS: TROPONIN I < 0.01 ng/mL; URINE BACTERIA NEG (NEG); URINE RBC TNTC /hpf (0-2); URINE WBC 0 - 2 /hpf (0-6)
[2018-02-27 17:44] LABS: ARTERIAL BLOOD GAS HCO3 13.2 mmol/L (21-28); ARTERIAL BLOOD GAS O2 CAPACITY 16.6 mL/dl (16-24); ARTERIAL BLOOD GAS O2 CONTENT 16.3 ML/dl (15-23); ARTERIAL BLOOD GAS PCO2 25 mm/Hg (35-45); ARTERIAL BLOOD GAS PH 7.33 (7.35-7.45)
[2018-02-27 18:31] LABS: BARBITURATES, UR NEGATIVE (NEGATIVE); BENZODIAZEPINES, UR NEGATIVE (NEGATIVE); OPIATES, UR NEGATIVE (NEGATIVE); PHENCYCLIDINE, UR NEGATIVE (NEGATIVE)
[2018-02-27 20:05] VITALS: BP 142/86; PULSE 100; RESP 16; O2SAT 100
== END 2018-02-27 19:33 | disposition left against medical advice (07) ==
LOC: ED 15:29
DX: E10.10 Type 1 diabetes mellitus with ketoacidosis without coma (principal); E10.65 Type 1 diabetes mellitus with hyperglycemia; Z79.4 Long term (current) use of insulin; I10 Essential (primary) hypertension; F17.210 Nicotine dependence, cigarettes, uncomplicated
CPT/HCPCS: 80053; 80324; 80345; 80346; 80349; 80353; 80358; 80361; 81001; 82550; 82803; 82948; 83615; 83735; 83992; 84484; 85025; 85610; 85730; 87086; 96361; 96374; 96375; 99284; J2405; J7030